=== PATIENT | male | born 1935 | race Caucasian/White ===

== ENCOUNTER 2022-02-16 10:42 | Emergency (ER) | payer MEDICARE, OTHER ==
[~2022-02-16] VITALS: Ht 165.1 cm; Wt 49.4 kg
[2022-02-16] MEDS ORDERED: LISINOPRIL20 MG PO (12:56)
== END 2022-02-16 17:12 | disposition home or self-care (01) ==
LOC: ED 10:42
DX: K22.2 Esophageal obstruction (principal); R63.4 Abnormal weight loss; Z85.828 Personal history of other malignant neoplasm of skin; Z79.899 Other long term (current) drug therapy
CPT/HCPCS: 36415; 71045; 71260; 74177; 80053; 81001; 83735; 85025; 99284-25; J2405; J7030; Q9967

== ENCOUNTER 2022-02-19 10:11 | Inpatient (IN) | payer MEDICARE ==
[~2022-02-19] VITALS: Ht 165.1 cm; Wt 52.9 kg
[~2022-02-19 10:11] MED LIST: LISINOPRIL20 MG PO
--- OUTSIDE RECORDS SUMMARY | 2022-02-19 10:18 | XMS ---
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 - 2 Visits in 30 Days CARE PROVIDERS There are no care providers on record at this time. Galina has no Care Guidelines for this patient. Baljinder VIS[facility] COUNT (12 MO.) [facility] T[facility] NOTE: Visits indicate total known visits. ED/C VISIT TRACKING (12 MO.) [facility] COMPLAINT: - NO APPETITE 02/16/2022 10:43 [facility] OR TYPE: Emergency COMPLAINT: - DIFFICULTY SWALLOWING, DEHYDRATED INPATIENT VISIT TRACKING (12 MO.) No inpatient visits to display in this time frame [id number]
--- NOTE | 2022-02-19 13:30 | NUR ---
PATIENT ARRIVED FROM ER VIA STRETCHER. KADEN CHARGE NURSE HAS GOTTEN PATIENT IN TO BED AND HIS IV IS D5LR RUNNING AT 125MLS/HR. PATIENT'S UPPER LUNGS ARE CLEAR, BUT BILAT BASILAR EXP. WHEEZES ARE NOTED AND PATIENT HAS NO BOWEL TONES. THE ABSENCE OF BOWEL TONES NOTED BY THIS RN AND CONFIRMED BY AUSCULTATION WITH GILBERT ALFONSO. PATIENT DENIES NEED FOR NAUSEA OR PAIN MEDS AND SAYS HE IS COMFORTABLE WITH JUST AND ICE PACK ON HIS ABD. DERMATOLOGY TEACHER EQUAL AND STRONG AND STRENGTH IN LEGS IS EQUAL. PATIENT JUST FEELS WEAK. CALL LIGHT IS IN REACH AND BED ALARM IS ON.
--- NOTE | 2022-02-19 15:13 | NUR ---
MED REC COMPLETE
--- NOTE | 2022-02-19 15:33 | NUR ---
HERE SEEING PATIENT. THIS RN INFORMED PATIENT'S HR IS REALLY IRREGULAR AND THAT HIS SYSTOLIC B/P IS IN THE 170'S TO 180'S AND THAT THIS RN COULD NOT HERE ANY BOWEL TONES. VERBALIZED UNDERSTANDING AND HAD NO NEW ORDERS FOR THIS RN AT THIS TIME. THE PATIENT TRIED TO VOID AND WAS NOT ABLE TO AT THIS TIME. CALL LIGHT IS IN REACH AND PATIENT DENIES ANY CARE NEEDS AT THIS TIME.
--- NOTE | 2022-02-19 18:02 | NUR ---
PATIENT STOOD AT THE BEDSIDE WITH 1PSBA AND VOIDED 100MLS DARK CHUCHO URINE. PATIENT GIVEN A NEW ICEPACK TO SET ON HIS BELLY. PATIENT'S HX COMPLETE. PATIENT CANNOT READ OR WRITE. PATIENT DOES NOT KNOW THE YEAR/MONTH/OR PRESIDENT. PATIENT HAS NO NAUSEA, JUST FEELS HE CAN'T SWOLLOW AND COUGHS UP SOME PHLEM. CALL LIGHT IN REACH AND BED ALARM IS ON. PATIENT'S FAMILY TOOK HIS CANE HOME WITH THEM.
--- NOTE | 2022-02-19 18:22 | NUR ---
IS ON THE UNIT AND INFORMED OF PATIENT'S LOW URINE OUTPUT AND ORDERED 1 LITER LR BOLUS OVER 1 HOUR. READ THIS BACK TO AND HE CONFIRMED THE ORDER.
--- NOTE | 2022-02-19 18:32 | NUR ---
1 LITER LR BOLUS STARTED TO GO OVER 1 HOUR. IN THE ROOM TALKING WITH PATIENT AT THIS TIME. CALL LIGHT IN REACH.
--- NOTE | 2022-02-19 18:44 | NUR ---
PATIENT IN BED RESTING. VITALS DONE AND CHARTED. BLOOD PRESSURE HIGH, RN NOTIFIED. CALL LIGHT IN REACH. BED ALARM ON. NO FURTHER NEEDS AT THIS TIME.
--- NOTE | 2022-02-19 19:35 | NUR ---
REPORT RECEIVED FROM GILBERT PETERSON. pt RESTING IN BED AWAKE, SCDS ON. IVF BOLUS INFUSING WNL. UP TO SIDE OF BED SBA TO VOID IN URINAL, 175 MLS. pt BACK IN BED. BOLUS NOW COMPLETE. BED ALARM ON.
--- NOTE | 2022-02-19 21:35 | NUR ---
pt AWAKE WHEN RN ENTERS ROOM. pt DENIES ANY PAIN AT THIS TIME. CONSENT FOR SURGERY SIGNED AND ON CHART. SBA TO SIDE OF BED FOR VOID IN URINAL AND BACK TO BED. SCDS ON. ASSESSMENT COMPLETE. BOWEL TONES ABSENT, HYPOACTIVE RUQ. pt COUGHING UP THICK CLEAR PHLEGM. DENIES NAUSEA. NPO. IV SITE FLUSHED WNL. NEW BAG IVF INFUSING ORDERED. pt HAS CALL LIGHT IN REACH. EDUCATION PROVIDED RING STRIKER LIGHT. BED ALARM ON.
--- NOTE | 2022-02-19 23:04 | NUR ---
CALL LIGHT ANSWERED. SBA TO STAND AT SIDE OF BED TO VOID IN URINAL, 175 MLS CONCENTRATED VOID. SBA WITH FWW TO RESTROOM FOR BM, FLATUS PRESENT, NO BM. BACK IN BED. SCDS ON. BED ALARM ON. IVF INFUSING WNL. CALL LIGHT IN REACH.
--- NOTE | 2022-02-20 02:32 | NUR ---
pt AWAKE IN BED, DOING SIT UPS. pt C/O STOMACH DISCOMFORT. "FEELS LIKE I MIGHT THROW UP". PRN NAUSEA MEDICATION ADMINISTERED. pt DENIES ACTUAL PAIN. ASSESSMENT COMPLETE. BOWEL TONES NOW HYPOACTIVE. ABD SOFT, FLAT, NOT PAINFUL WITH PALPATION. VSS. pt DENIES TOILETING NEEDS. IVF INFUSING WNL. CALL LIGHT IN REACH. BED ALARM ON. SCDS ON.
--- NOTE | 2022-02-20 04:09 | NUR ---
CALL LIGHT ANSWERED. SBA TO SIDE OF BED FOR 400 ML VOID, CONCENTRATED. pt BACK IN BED WITH SCDS ON. IVF INFUSING WNL. CALL LIGHT IN REACH. BED ALARM ON.
--- NOTE | 2022-02-20 05:28 | NUR ---
LAB TECHS IN ROOM FOR LAB DRAW. pt AWAKE, COUGHING UP THICK CLEAR/WHITE SPUTUM. MOUTH SWAB AND WASH CLOTH PROVIDED. IVF INFUSING WNL. VSS. pt DENIES TOILETING OR ADDITIONAL NEEDS. CALL LIGHT IN REACH. BED ALARM ON.
--- NOTE | 2022-02-20 08:01 | NUR ---
THIS RN RECEIVED SHIFT REPORT FROM GILBERT JUARES. PATIENT HAS C/O NAUSEA AND 8MG SIVP ZOFRAN GIVEN ALONG WITH AM PEPCID IV. PATIENT GIVEN AN ICE PACK TO PUT ON HIS ABD AT HIS REQUEST FOR, "A BELLY ACHE". PATIENT DENIED ANY OTHER CARE NEEDS AT THIS TIME. CALL LIGHT IN REACH AND BED ALARM ON. AM ASSESSMENT COMPLETE.
--- NOTE | 2022-02-20 08:26 | NUR ---
got pt ice pack. call light within reach no further tasks at this time
--- NOTE | 2022-02-20 09:30 | NUR ---
HERE SEEING PATIENT AND WRITING ORDERS. PATIENT'S NA+ REMAINS ELEVATED AND IV CHANGED TO D5W AT 125MLS/HR AND CONSULT PUT IN FOR THE HOSPITALIST. PATIENT DENIES ANY CARE NEEDS AT THIS TIME. CALL LIGHT RYLEE MCCRARY.
--- NOTE | 2022-02-20 09:50 | NUR ---
THIS RN WAS INFORMED BY CHARGE NURSE WANG TO HOLD IV FLUIDS PER UNTIL COULD SEE THE PATIENT. PATIENT'S IV STOPPED AND IV LOCKED WITH SALINE. SEEING PATIENT NOW.
--- NOTE | 2022-02-20 10:30 | NUR ---
CALLED THIS RN TO RESTART D5W AT 85MLS/HR WHICH WAS DONE. PATIENT UP TO THE BATHROOM 1PSBA AND FWW TO THE BATHROOM AND BACK TO BED. BED ALARM BACK ON. NEW NONADHERANT DRESSING WITH MEDIPORE TAPE PLACED OVER PATIENT'S RIGHT MID/UPPER BACK SKIN CA LESION. WASHED OFF WITH WOUND CLEANSER OLD DRESSSING WAS FALLING OFF. PATIENT HAS NO OTHER CARE NEEDS FROM THIS RN AT THIS TIME. CALL LIGHT IN REACH.
--- NOTE | 2022-02-20 11:21 | NUR ---
THIS RN IN AND GAVE SIVP VASOTEC TO PATIENT FOR B/P. PATIENT TOLERATED THIS WELL. PATIENT DENIES ANY CARE NEEDS AT THIS TIME. CALL LIGHT IN REACH AND BED ALARM IS ON.
--- NOTE | 2022-02-20 13:19 | NUR ---
PT IS LAYING IN BED AND BROTHER AT BEDSIDE. I&O AND VS CHARTED CALL LIGHT WITHIN REACH NO FURTHER TASKS AT THIS TIME
--- NOTE | 2022-02-20 13:31 | NUR ---
I was able to meet with Sang, his Aleyda Genao, and friend Jarvis today. Sang states that he plans to return home on discharge from the hospital. Friend Jarvis is with the patient and his Aleyda Genao, and drives them to their appointments and wherever they need to go. Sang states that he has been able to chores including feeding the chickens, etc. Sang and his are requesting a PCP in [place], both feel that they are able to care for themselves in the home. There are no food insecurities expressed. There are no concerns with being able to corn picker prescriptions, buy food, pay for utilities etc. Sang is awake and oriented to person/place, but not time. He is able to describe his radiation treatment in detail. He answers questions appropriately. Sang denies questions or needs at this time. Very happy with care here in the [facility] as reported by Sang and his .
--- NOTE | 2022-02-20 14:32 | NUR ---
THIS RN IN TO CHECK ON PATIENT. PATIENT'S AND FRIEND ARE HERE VISITING AND UPDATED ON PATIENT'S CONDITION. INFORMED PATIENT AND VISITORS PATIENT WOULD NOT BE GOING FOR HIS UPPER GI UNTIL TOMORROW THE HOSPITALIST IS TRYING TO CORRECT THE PATIENT'S ELECTROLYTE IMBALANCE. ALL PRESENT VERBALIZED UNDERSTANDING. AFTERNNON ASSESSMENT COMPLETE. PATIENT DENIED ANY CARE NEEDS AT THIS TIME. CALL LIGHT IS IN REACH.
--- NOTE | 2022-02-20 17:25 | NUR ---
PATIENT GIVEN HIS 1700 IV B/P MEDS. PATIENT DENIES NAUSEA, BUT STILL HAS A,"STOMACH ACHE". PATIENT JUST SEEMS TO BE CONTENT WITH AN ICEPACK THAT HE PUTS ON HIS ABD AND DOESN'T WANT ANYTHING ELSE. PATIENT HAS BEEN VOIDING QUANTITY SUFFICIENT AND REMAINS NPO. IV WNL AND INFUSING. BED ALARM IS ON AND CALL LIGHT RYLEE MCCRARY. PATIENT DENIES ANY OTHER CARE NEEDS AT THIS TIME.
--- NOTE | 2022-02-20 18:25 | NUR ---
PATIENT CALLED AND TAKEN TO THE RESTROOM 1PSBA AND FWW BY STEVEN AYERS. PATIENT RETURNED BACK TO BED IN THE SAME MANNER AND TOLERATED THIS WELL. CALL LIGHT IS IN REACH AND BED ALARM IS ON. PATIENT HAS BEEN CALL APPROPRIATELY.
--- NOTE | 2022-02-20 19:21 | NUR ---
REPORT RECEIVED FROM GILBERT PETERSON. pt RESTING IN BED WITH EYES CLOSED. BREATHING EQUAL AND UNLABORED. NO DISTRESS NOTED. BED ALARM ON. SCDS ON.
--- NOTE | 2022-02-20 19:27 | NUR ---
PATIENT RESTING QUIETLY IN BED, EYES CLOSED, RESPIRATIONS ARE REGULAR AND EVEN, AND CALL LIGHT IN REACH. SHIFT REPORT GIVEN TO GILBERT JUARES.
--- NOTE | 2022-02-20 20:31 | NUR ---
pt AWAKENS TO VOICE. IVF INFUSING WNL ORDERED. IV SITE FLUSHED WNL, GOOD BLOOD RETURN. SCHEDULED MEDICATION ADMINISTERED. IV K RIDER INFUSING WNL. ASSESSMENT COMPLETE. pt DENIES PAIN, EDUCATED ON PAIN SCALE. pt RATES PAIN 3/10 AFTER DISCUSSION IN ABDOMEN. DENIES NEEDS. DECLINES ICE PACK OFFERED. CALL LIGHT IN REACH. BED ALARM ON. pt DENIES TOILETING NEEDS.
--- NOTE | 2022-02-20 21:26 | NUR ---
IN ROOM TO INFUSE SECOND K RIDER. pt STATES "IT WAS KIND OF BURNING". IV SITE FLUSHED AND ASSESSED WNL. RATE SLOWED TO 75 MLS/HR AND WARM BLANKET WRAPPED AROUND ARM. pt EDUCATED TO USE CALL LIGHT IF ARM IS HURTING. STATES "YOU GUYS ARE BUSY, I DONT WANT TO BE A BOTHER". REASSURED pt TO CALL, STAFF IS AVAILABLE. BED ALARM BUCK PRESSER LIGHT IN REACH. SCDS ON.
--- NOTE | 2022-02-20 22:52 | NUR ---
pt SLEEPING, AWAKENS TO VOICE FOR SCHEDULED IV MEDICATION. IV SITE FLUSHED WNL. MEDICATION ADMINISTERED ON IV PUMP. SECOND K RIDER COMPLETE. IV MG NOW INFUSING WNL. pt DENIES TOILETING NEEDS. CALL LIGHT IN REACH. BED ALARM ON.
--- NOTE | 2022-02-21 00:22 | NUR ---
CALL LIGHT ANSWERED. SBA WITH FWW TO RESTROOM FOR 400 ML VOID AND BACK TO BED. GAIT STEADY WITH WALKER. SCDS ON. BED ALARM ON. IVF INFUSING WNL. CALL LIGHT IN REACH.
--- NOTE | 2022-02-21 02:50 | NUR ---
pt COUGHING, CHECKED ON pt. COUGHING UP PHLEGM. SBA TO SIDE OF BED FOR VOID IN URINAL AND BACK TO BED. ASSESSMENT COMPLETE. pt DENIES PAIN. SCDS ON. CALL LIGHT IN REACH.
--- NOTE | 2022-02-21 05:24 | NUR ---
pt AWAKE RESTING IN BED AFTER LAB DRAW. pt DENIES PAIN. VSS. SCHEDULED IV MEDICATION ADMINISTERED. SCDS ON. CALL LIGHT IN REACH.
--- NOTE | 2022-02-21 07:15 | NUR ---
REPORT RECIEVED FROM BLANQUITA HUNT AND ROMANA NGUYEN. PT RESTING IN BED, HELPED TO RESTROOM. NO FURTHER NEEDS IDENTIFIED AT THIS TIME.
--- NOTE | 2022-02-21 07:55 | NUR ---
PT AWAKE IN BED. WHITE BOARD UPDATED. PT CONCERNED BY SCAB ON UPPER LIP AND WANTS SOMETHING TO SOOTHE IT. GILBERT FIERRO NOTIFIED. CALL LIGHT IN REACH. NO FURTHER NEEDS AT THIS TIME.
--- NOTE | 2022-02-21 08:05 | NUR ---
ASSESSMENT COMPLETE. PT RESTING IN BED A+O WATCHING TV. HRR, LSC, IV INFUSING WNL. PT STATE CONTINUOUS DULL PAIN IN UPPER STOMACH. BOWEL TONES ACTIVE, NO NAUSEA AT THIS TIME. PT DENIES N/T, SKIN DRY AND INTACT. PT GETTING READY TO GO FOR EGD, EDUCATED AND NO QUESTIONS AT THIS TIME.
--- NOTE | 2022-02-21 09:53 | NUR ---
02/21/22 0953 Francie Shelby 0937-PATIENT ARRIVED TO PACU ON 5L NC RN DOING JAW THRUST TO MAINTAIN OPEN AIRWAY. PATIENT NONAROUSABLE ABDOMEN SOFT. SR. IVF INFUSING. 0940-PATIENT REMAINS NONAROUSABLE RN DOING JAW THRUST TO MAINTAIN OPEN AIRWAY. 0945-PATIENT AROUSING TO VERBAL STIMULI EYES SLIGHTLY OPENING PATIENT MAINTAINING OWN AIRWAY. NOT FOLLOWING COMMANDS AT THIS TIME. 0952-PATIENT SLEEPING 98% 2L NC. APNEA PATIENT AROUSES EASILY AND TAKES DEEP BREATHES REMAINS VERY DROWSY. DOZES BACK TO SLEEP.
--- NOTE | 2022-02-21 10:35 | NUR ---
PT RETURNED FROM PROCEDURE, PT DROWSY BUT ORIENTED AND AROUSABLE. FAMILY AT BEDSIDE. DR RIDLEY IN ROOM EDUCATING FAMILY AND PT. VSS, NO FURTHER NEEDS OR QUESTIONS AT THIS TIME CALL LIGHT IN REACH.
--- NOTE | 2022-02-21 11:25 | NUR ---
Patient to imaging for procedure
--- NOTE | 2022-02-21 12:19 | NUR ---
Call light answered, IV pump alarming, resolved. Pt resting in bed watching TV. He states he has no needs at this time.
--- NOTE | 2022-02-21 13:33 | NUR ---
ROUNDED ON PT, RESTING IN BED WITH EYES CLOSED. NO NEEDS IDENTIFIED AT THIS TIME. CALL LIGHT IN REACH
--- NOTE | 2022-02-21 14:32 | NUR ---
PT AWAKE IN BED. PT AMBULATED SBA WITH FWW TO BATHROOM. PT BACK TO BED WITH CALL LIGHT IN REACH. NO FURTHER NEEDS AT THIS TIME.
--- NOTE | 2022-02-21 15:00 | NUR ---
ASSESSMENT COMPLETE. PT RESTING IN BED, CONVERSATING WITH STAFF. LUNG SOUNDS CLEAR, IV INFUSING WNL,A+O. PT STATES NO PAIN OR NAUSEA AT THIS TIME. BOWEL TONES ACTIVE, SKIN DRY AND INTACT. NO NEEDS IDENTIFIED AT THIS TIME. CALL LIGHT IN REACH
--- NOTE | 2022-02-21 16:00 | NUR ---
Called [facility] to find a Dr. to establish care for this pt. Notified by medical receptionist biller, pt is established with Chata Olivares SERVICE DESK TEAM LEAD at the [facility] and has been seen 4 times in the last 6 months. Pt has also seen Dr. Brink at the same clinic 3 times in the last 6 months. Will list Elise as pts pcp and let pt know if they want to change Drs, they will need to do so after they return home.
--- NOTE | 2022-02-21 16:33 | NUR ---
Spoke with pt and he had forgotten he see Caesar Olivares in [place] as his pcp. Does not remember seeing Dr. Brown, eventhough he has seen them several times. He is fine with cont. with Ghulam Olivares as his PCP.
--- NOTE | 2022-02-21 16:53 | NUR ---
Chart faxed to [facility] and [facility].
--- NOTE | 2022-02-21 17:33 | NUR ---
CALL LIGHT ANSWERED. PT IN BATHROOM. TEETH BRUSHED AND MOUTHWASHED. PT GAIT UNSTEADY WITH FWW. NO FURTHER NEEDS AT THIS TIME. CALL LIGHT IN REACH.
--- NOTE | 2022-02-21 17:45 | NUR ---
Scheduled medications given and oral swabs provided. Pt resting in bed and states his throat is dry. IVF with potassium infusing WNL. Pt has no other needs at this time. Call light in reach.
--- NOTE | 2022-02-21 19:57 | NUR ---
RECEIVED REPORT FROM DAYSHIFT RN. PATIENT IN BED WATCHING TV. NO FURTHER NEEDS NOTED. CALL LIGHT WITHIN REACH.
--- NOTE | 2022-02-21 20:10 | NUR ---
IV PUMP ALARMING DISTAL OCCLUSION. IV SITE ASSESSED, IV K RIDER INFUSING WNL. TEMPERATURE IN ROOM ADJUSTED PER REQUEST. BLANKET REMOVED. CALL LIGHT IN REACH.
--- NOTE | 2022-02-21 21:10 | NUR ---
ASSESSMENT COMPLETED. VITALS TAKEN & RECORDED. I/O'S RECORDED. SCHEDULED MEDICATIONS GIVEN ORDERED. IV MEDS INFUSING ORDERED. PATIENT DENIES PAIN. NO FURTHER NEEDS NOTED. CALL LIGHT IN REACH. BED ALARM IN PLACE. PATIENT ALERT AND ORIENTED. ORAL CARE PROVIDED. WOUND DRESSING CLEAN DRY & INTACT.
--- NOTE | 2022-02-21 23:42 | NUR ---
PATIENT IN BED RESTING. BP TAKEN & RECORDED. SCHEDULED MEDS GIVEN ORDERED. IV INFUSING PER ORDER. NO NEEDS NOTED. CALL LIGHT IN REACH.
--- NOTE | 2022-02-22 02:17 | NUR ---
PATIENT ASSESSMENT COMPLETED. VITALS TAKEN & RECORDED. I/O'S RECORDED. PATIENT DENIES PAIN. ORAL CARE COMPLETED. SCDS IN PLACE. NO FURTHER NEEDS NOTED. CALL LIGHT IN REACH. BED ALARM IN PLACE.
--- NOTE | 2022-02-22 03:14 | NUR ---
ANSWERED PT CALL LIGHT, ASSITED PT TO BR, 1PA FWW. PT BACK IN BED, BED ALARM ON, CALL LIGHT WITHIN REACH, NO FURTHER ASSISTANCE NEEDED AT THIS TIME.
--- NOTE | 2022-02-22 05:30 | NUR ---
PATIENT IN BED WATCHING TV. VITALS TAKEN & RECORDED. I/O'S RECORDED. SCHEDULED MEDS GIVEN PER ORDER. NO FURTHER NEEDS NOTED. CALL LIGHT IN REACH. BED ALARM IN PLACE.
--- NOTE | 2022-02-22 06:50 | NUR ---
ASSISTED PATIENT TO THE RESTROOM BY SBA W/FWW. PATIENT BACK IN BED. PATIENT REQUESTS TO LEAVE SCDS OFF FOR A WHILE. EDUCATED PATIENT. PROVIDED ORAL CARE FOR PATIENT. NO FUTHER NEEDS NOTED. CALL LIGHT IN REACH. BED ALARM IN PLACE.
--- NOTE | 2022-02-22 07:30 | NUR ---
REPORT RECIEVED FROM NIGHT GILBERT THOMAS. PT AWAKE IN BED, AAO. DENIES NEEDS AT THIS TIME. CALL LIGHT IN REACH.
--- NOTE | 2022-02-22 08:52 | NUR ---
ASSISTED PT SBA WITH FWW TO BATHROOM FOR VOID THEN UP TO CHAIR. PERSONAL ITEMS AND CALL LIGHT WITHIN REACH. LIGHTS AND TV ON, SHADES OPEN.
--- NOTE | 2022-02-22 09:40 | NUR ---
RN IN ROOM TO ADMINISTER SCHEDULED MEDCATION AND ASSESS PT - PT SITTING UP IN CHAIR VISITING WITH STUDENT NURSE UPON ENTRY. PT PROVIDED THICKENED JUICE PER VERBAL ORDER FROM DR. RIDLEY THIS MORNING TO ASSESS ONGOING ESO STRICTURE. PT UNABLE TO TOLERATE SMALL SIP, FLUID CAME BACK UP AFTER APPROX 10-20 SEC AFTER SWALLOW INITIATING PT TO COUGH/GAG. WHITE SORES IN MOUTH NOTED - TOP OF MOUTH, TOUNGE AND THROAT. RN TO READ NOTES AND ADDRESS PROBLEM IF NEW. PT DENIES PAIN, SOB. HR REGULAR. IV SITE TOLERATING FLUIDS WITHOUT DIFFICULTY. CALL LIGHT IN REACH.
--- NOTE | 2022-02-22 11:53 | NUR ---
RN IN ROOM TO ADMINISTER SCHEDULED MEDICATIONS. PT REQUESTS HELP TO BATHROOM TO VOID - STANDBY ASSIST WITH FWW. VOIDED 300 OF CONCENTRATED URINE. FAMILY AT BEDSIDE. DENIES FUTHER NEEDS, CALL LIGHT IN REACH.
--- NOTE | 2022-02-22 12:30 | PATH ---
[facility] [address], [place] [address] Signed SPECIMEN(S): A DUODENAL BIOPSY SPECIMEN(S): B DISTAL ESOPHAGEAL BIOPSY SPECIMEN(S): C ESOPHAGEAL BIOPSY STRICTURE SPECIMEN SOURCE: A. DUODENAL BIOPSY B. DISTAL ESOPHAGEAL BIOPSY C. ESOPHAGEAL BIOPSY STRICTURE CLINICAL HISTORY: Dehydration and dysphagia/Zenker's diverticulum. FINAL PATHOLOGIC DIAGNOSIS: A. Duodenum, biopsy: - Duodenal mucosa with changes of peptic duodenitis. - Negative for increased intraepithelial lymphocytes or villous blunting. - Negative for dysplasia or malignancy. B. Esophagus, distal, biopsy: - Reflux esophagitis. - Negative for intestinal metaplasia, dysplasia, or malignancy. C. Esophagus, stricture, biopsy: - Squamous mucosa with mild reactive changes. - Negative for intestinal metaplasia, dysplasia, or malignancy. NAL:cml:C2NR MICROSCOPIC EXAMINATION: Histologic sections of all submitted blocks are examined by light microscopy. These findings, together with the gross examination, support the pathologic diagnosis. GROSS DESCRIPTION: Three specimens are received in three containers, labeled "CH." A. The specimen, labeled "CH, duodenal biopsy," is received in formalin and consists of one huffman soft tissue fragment that measures 0.2 cm in greatest dimension. The specimen is entirely submitted in cassette (A1). B. The specimen, labeled "CH, distal esophagus biopsy," is received in formalin and consists of one huffman soft tissue fragment that measures 0.2 cm in greatest dimension. The specimen is entirely submitted in cassette (B1). C. The specimen, labeled "CH, esophagus stricture biopsy at 18 cm," is PATIENT NAME: PRANAV BARR PATHOLOGY DATE OF : 39 REPORT #: [id number] PHYSICIAN: HOMA MARIN PCP: MIKE BRANTLEY MD REPORT IS CONFIDENTIAL AND NOT TO BE RELEASED WITHOUT AUTHORIZATION [facility] [address] [place] [address] Signed received in formalin and consists of two huffman soft tissue fragments that measure 0.1-0.2 cm in greatest dimension. The specimen is entirely submitted in cassette (C1). JS (under the direct supervision of a pathologist) The Gross Description was prepared using a voice recognition system. The report was reviewed for accuracy; however, sound-alike word errors, addition and/or deletions may occur. If there is any question about this report, please contact Client Services. PERFORMING LABORATORY: The technical component was performed by [employer] [address] (CLIA# [id number]). [facility], [address] [place] [address] (CLIA# [id number]). Diagnostician: Kylee Lui MD Pathologist Electronically Signed 02/22/2022 Copies: ~ PATIENT NAME: PRANAV BARR PATHOLOGY DATE OF : 39 REPORT #: [id number] PHYSICIAN: HOMA MARIN PCP: MIKE BRANTLEY MD REPORT IS CONFIDENTIAL AND NOT TO BE RELEASED WITHOUT AUTHORIZATION
--- NOTE | 2022-02-22 14:15 | NUR ---
RN IN ROOM TO COMPLETE VS, I/O AND ASSESSMENT. PT SITTING UP IN CHAIR VISITING WITH FAMILY. PT HR IRREGULAR, RATE 56 MANUALLY COUNTED. HELMET HAT PUNCHER EDUCATED ON RANGE WHEN TO NOTIFY RN AND TO COUNT PULSE MANUALLY WITH IRREGULAR RYTHEMS. PT STATES HE PASSED GAS, BOWEL TONES HYPOACTIVE. REMAINS NPO AT THIS TIME. IV SITE TOLERATING FLUIDS WITHOUT DIFFICULTY. PT DENIES OTHER NEEDS AT THIS TIME. CALL LIGHT IN REACH.
--- NOTE | 2022-02-22 14:29 | NUR ---
RT IN ROOM TO PERFORM ORDERED EKG.
--- NOTE | 2022-02-22 15:42 | NUR ---
No change in dc plans.
--- NOTE | 2022-02-22 17:14 | NUR ---
RN IN ROOM TO ADMINISTER SCHEDULED MEDS. VS STABLE - PULSE MANUALLY CALCULATED AT 61. PT BACK TO BED FROM CHAIR, AMBULATES USING FWW AND STANDBY. PT RE-ORIENTED TO SITUATION - PT STATED HE WAS TOLD HE HAD A NC WHEN HE ARRIVED FOR THIS ADMISSION, PT STATES HE "JUST DOESNT CARE ANYMORE". CALL LIGHT IN REACH.
--- NOTE | 2022-02-22 19:30 | NUR ---
REPORT RECEIVED FROM MARIE HUNT. PT IS AWAKE AND ALERT IN BED. HE IS NPO FOR DYSPHAGIA. PTS IV IS INFUSING AND APPEARS TO BE WNL. HE IS PLEASANT AND COOPERATIVE . PT KNOWS TO CALL FOR ASSIST. HAS CALL LIGHT IN REACH. BED ALARM IS ON.
--- NOTE | 2022-02-22 23:14 | NUR ---
PT UP TO THE BATHROOM WITH FWW AND SBA. VOIDED 400. ASSSITED BACK TO BED. CALL LIGHT IN REACH. BED ALARM ON.
--- NOTE | 2022-02-23 02:15 | NUR ---
PT SBA FWW TO THE TOILET, VOID, BACK TO BED, ALARM SET, NO FURTHER NEEDS AT THIS TIME
--- NOTE | 2022-02-23 04:15 | NUR ---
PT NPO. SLEEPING OFF AND ON TONIGHT. CALL LIGHT IN REACH. BED ALARM ON.
--- NOTE | 2022-02-23 05:50 | NUR ---
PT ASSISTED UP TO THE BATHROOM. VOIDED. ASSISTED BACK TO BED. DRESSING ON BACK REPLACED IT WAS PEALING OFF. CALL LIGHT IN REACH.
--- NOTE | 2022-02-23 07:31 | NUR ---
REPORT RECEIVED FROM NIGHT RN TASH - PT RESTING IN BED ON SIDE WITH EYES CLOSED. RR EVEN AND UNLABORED. CALL LIGHT IN REACH.
--- NOTE | 2022-02-23 08:48 | NUR ---
RN IN ROOM TO ADMINISTER SCHEDULED MEDICATIONS. PT RESTING IN CHAIR WATCHING TV UPON ENTRY. IV SITE TOLERATING IV FLUIDS WITHOUT DIFFICULTY. PT DENIES FURTHER NEEDS AT THIS TIME. VS COMPLETE - STABLE. CALL LIGHT IN REACH.
--- NOTE | 2022-02-23 08:55 | NUR ---
pt is sitting up in chair. i&o charted RN charted vs. call light within reach no further tasks at this time
--- NOTE | 2022-02-23 11:10 | NUR ---
Spoke with pt, , and pts friend. Pt states he plans on having surgery. States he has lost 65 pounds and is unable to eat. Pt and plan on pt going home when medically cleared after surgery. denies needs for pt to go home. Friend will drive them.
--- NOTE | 2022-02-23 12:19 | NUR ---
RN IN ROOM TO ADMINISTER SCHEDULED MEDICATIONS - RESTING IN BED VISITING WITH FAMILY UPON ENTERING. ASSESSMENT COMPLETE. UNCHANGED FROM PREVIOUS. PT DENIES FURTHER NEEDS AT THIS TIME. PREOP DUTIES HAVE BEEN COMPLETED. CALL LIGHT IN REACH.
--- NOTE | 2022-02-23 13:19 | NUR ---
Pt left floor to OR with OR staff.
--- NOTE | 2022-02-23 13:43 | EKG ---
[facility] [address] [place], [place] [address] Signed Sinus rhythm Frequent PVCs Left bundle branch block Abnormal ECG No previous ECGs available Confirmed by UMESH EASON MD ([id number]) on 02/23/2022 1:43:08 PM Electronically Signed By: UMESH EASON MD 02/23/22 1343 PATIENT NAME: PRANAV BARR Electrocardiogram DATE OF : 39 PHYSICIAN: UMESH EASON MD REPORT #: [id number] REPORT IS CONFIDENTIAL AND NOT TO BE RELEASED WITHOUT AUTHORIZATION
--- NOTE | 2022-02-23 13:44 | EKG ---
[facility] [address] [facility] [place] [address] Signed Sinus rhythm with premature atrial complexes Left bundle branch block Abnormal ECG When compared with ECG of 21-FEB-2022 10:19, (Unconfirmed) Previous ECG has undetermined rhythm, needs review Confirmed by UMESH EASON MD ([id number]) on 02/23/2022 1:44:04 PM Electronically Signed By: UMESH EASON MD 02/23/22 1344 PATIENT NAME: PRANAV BARR Electrocardiogram DATE OF : 39 PHYSICIAN: UMESH EASON MD REPORT #: [id number] REPORT IS CONFIDENTIAL AND NOT TO BE RELEASED WITHOUT AUTHORIZATION
--- NOTE | 2022-02-23 18:25 | NUR ---
pt arrived intubated on ventilator with MAGED FOX AND KERRI NURSE. PT HOOKED UP TO VENTILATROR AT THIS TIME BY RT. 7 INCH TUBE, 21 AT THE LIP. VT= 450, RR = 18, PEEP =5, FIO2 = 40%. PERSONAL LINES ACCOUNT MANAGER HAS PROPOFOL DRIP INFUSING AT 100 MCG/KG/MIN. PT RASS SCORE UPONE ARRIVAL -3. HEART RATE3 IN THE 50S AT REST, SPO2 = 100 PERCENT ON CURRENT VENT SETTINGS. BLOOD PRESURE 140/94.
--- NOTE | 2022-02-23 18:40 | NUR ---
VERBAL ORDER BY DR RIDLEY FOR PROPOFOL DRIP. DRIP NOW INFUSING AT 90 MCG/KG/MIN. VS REMAIN WNL AT THIS TIME. THIS RN REMAINS AT BEDSIDE.
--- NOTE | 2022-02-23 20:00 | NUR ---
RECIEVED REPORT FROM DAY SHIFT, FOCUSED ASSESSMENT COMPLETED, EMAR, ORDERS, AND LABS REVIEWED, SPOKE WITH DR EASON REGARDING ELEVATED BLOOD PRESSURE AND ASKED IF HE WOULD LIKE AN OG PLACED FOR ASPIRATIONS PRECAUTIONS, DR EASON STATED NOT AT THIS TIME, FULL HEAD TO TOE ASSESSMENT COMPLETED, KRUEGER CHANGED TO A UROMETER TO BETTER EVALUATE HOURLY URINE OUTPUT, CXR AND ABG ORDERED. HOB ELEVATED TO 30 DEGREES, SUCTION PROVIDED, MATTIE NOTED TO BE DRAINING BLOODY FLUID, URINE IS LIGHT YELLOW, PEG TUBE IS CLAMPED, PROPOFOL INFUSING, WILL ATTEMPT TO TITRATE DOWN
--- NOTE | 2022-02-23 21:03 | NUR ---
ORAL CARE PROVIDED WITH CHG MOUTH WASH, PT'S MOUTH AND ETT SUCTIONED, THIN CLEAR SECREATIONS, SMALL AMOUNT. PT REPOSITIONED AFTER CXR TAKEN, KRUEGER DRAINING, MATTIE DRAINING, RESTRAINTS IN PLACE, MEDS GIVEN PER MAR, PROPOFOL TITRATED PER ORDERS, PTS RASS -4, HOB ELEVATED TO 30 DEGREES, VITALS WNL
--- NOTE | 2022-02-24 00:39 | NUR ---
PT REMAINS SEDATED AND INTUBATED, PROPOFOL GTT REMAINS INFUSING, REFER TO EMAR AND TITRATION FLOW SHEET FOR SPECIFIC TITRATIONS, RASS OF -3, KRUEGER DRAINING YELLOW URINE, MATTIE DRAIN DRAINING BLOODY FLUID, DRESSING REMAINS INTACT, FEEDING TUBE FLUSHED WITH 100 ML OF WATER, PT REPOSITIONED, RESTRAINTS REMAIN IN PLACE, SCDS ON, HOB AT 30 DEGREES
--- NOTE | 2022-02-24 01:15 | NUR ---
ORAL CARE AND SUCTION PROVIDED, ETT MOVED TO RIGHT SIDE OF MOUTH, PT EASILY AROUSABLE HOWEVER NOT FOLLOWING DIRECTION, CONTINUING TO TITRATE PROPOFOL PER ORDER, REFER TO MAR AND TITRATION FLOWSHEET FOR FURTHER DETAIL, RESTRAINTS IN PLACE, MATTIE UNCHANGED, URINE OUTPUT SLOWING DOWN AND BECOMING MORE CONCENTRATED, WILL CONTINUE TO MONITOR
--- NOTE | 2022-02-24 02:50 | NUR ---
PT'S BLOOD PRESSURE TRENDING DOWNWARD DESPITE PROPOFOL BEING SIGNIFICANTLY TITRATED DOWN, SEE MAR AND TITRATION FLOWSHEET, DR EASON NOTIFIED, 1 L LR BOLUS ORDERED TO BE GIVEN OVER [address] EASON IF PT IS NOT RESPONSIVE TO BOLUS
--- NOTE | 2022-02-24 04:15 | NUR ---
RT AND RN IN WITH PT, PT RASS -1, FOLLOWING COMMANDS, PROPOFOL TITRATED DOWN, SEE MAR AND TITRATION FLOWSHEET, BEGINNING SAT/SBT, RT REMAINS IN ROOM WITH PT
--- NOTE | 2022-02-24 05:52 | NUR ---
SAT/SBT COMPLETED, VENT SETTINGS BACK TO ORIGINAL SETTINGS, PROPOFOL INCREASED, RASS -2
--- NOTE | 2022-02-24 06:43 | NUR ---
PT RESTING, RASS -2, SEDATION AND MAINTAINCE FLUID INFUSING, MATTIE AND EVANS BOTH DRAINING, I&OS COMPLETED, LABS AND EMAR REVIEWED, BLOOD PRESSURE BEGINNING TO TREND DOWNWARD AGAIN, WILL REPORT TO DAY SHIFT, PT CURRENTLY MAINTAINING MAPS OVER 65, HOB ELEVATED TO 30 DEGREES, RESTRAINTS IN PLACE, SIDE RAILS RAISED, BED IN LOWEST POSITION, AWAITING DAY SHIFT TO GIVE REPORT
--- NOTE | 2022-02-24 07:30 | NUR ---
REPORT RECIEVED, CARE OF PT ASSUMED AT THIS TIME. PT RESTLESS ON VENT. EYES OPENING IN REPSONSE TO VOICE, FOLLOWING COMMANDS. DISCUSSED PLAN OF CARE WITH PATIETN. IV FLUIDS INFUSING.
--- NOTE | 2022-02-24 07:59 | NUR ---
INCREASED PROPOFOL DRIP TO 10 MCG/KG/MIN FOR PT COMFORT WHILE ON VENTILATOR. IV FLUIDS INFUSING.
--- NOTE | 2022-02-24 08:55 | NUR ---
DR EASON IN ROOM AT THIS TIME AND UPDATED ON ASSESSMENT FINDINGS. PT AT A RASS OF 1. PROPOFOL ON STANDBY AT THIS TIME. RT IN ROOM AND PLACED PT ON CPAP MODE AT THIS TIME. PT UNDERSTANDS PLAN OF CARE
--- NOTE | 2022-02-24 09:11 | NUR ---
PT SPO2 = 97 PERCENT ON CPAP. BREATHING EVEN AND UNLABORED. RR = 18. FOLLOWING COMMANDS. WRIST RETAINTS OFF. MAGNESIUM NOW INFUSING.
--- NOTE | 2022-02-24 10:00 | NUR ---
pt extubated well. now on 4 L om. continues to have copious oral secretions. oral care and oral suctioning provided. Discussed low urine output with Dr. Teran, orders recieved (see emar). 500 ml bolus now infusing. Familly at bedside at this time. discussed plan to start tube feeds. Call light within reach. Will continue to monitor.
--- NOTE | 2022-02-24 13:45 | NUR ---
PATIENT AWAKE CONVERSING WITH FAMILY, AT BEDSIDE. VSS WNL. PATIENT BREATHING EVEN AND REGULAR. NO NEEDS AT THIS TIME.
--- NOTE | 2022-02-24 14:00 | NUR ---
THIS RN IN ROOM TO CHECK ON PATIENT. ANTIBIOTICS INFUSING. FAMILY AT BEDSIDE PT SPO2 = 93% ON 3 L NC. PT USING YAUNKER HOOKED TO WALL SUCTION FOR ORAL SECRETIONS. PT REPOSITONED IN BED, CALL LIGHT WITHIN REACH. WILL CONTINUE TO MONITOR.
--- NOTE | 2022-02-24 14:12 | NUR ---
INTO ROOM, WHO VERBALIZED OKAY FOR PATIENT TO GET UP TO RECLINER IF PATIENT FEELS UP TO ACTIVITY. ADMINISTERED IV ANTIBIOTIC AND NEW BAG OF IV FLUIDS PER MAR. PATIENT APPEARS AWAKE, USING YANKER WITH SECRETIONS. AT BEDSIDE, PATIENT TOLERATING ACTIVITY WITH FAMILY WELL.
--- NOTE | 2022-02-24 14:28 | NUR ---
PT resting in bed. breathing even and unlabored. RR =20, SPO2= 97% on NC. Family no longer at bedside. Plan of care for afternoon established. Pt understands plan of care to get up to chair. Call light within reach. Will continue to monitor.
--- NOTE | 2022-02-24 16:30 | NUR ---
BED BATH AND ASSESSMENT COMPLETED. PT NOW UP IN CHAIR RECIEVING TUBE FEEDINGS. LUNGS SOUND COARSE THROUGHOUT. PT REMAINS ON 2 L NC. USING YAUNKEER SUCTION TO CLEAR ORAL SECRETIONS. HEART RATE IN THE 80S AT REST. URINE OUTPUT HAS IMPROVED. WILL CLOSELY MONITOR PT WHILE FIRST TUBE FEED IS INFUSING. CALL LIGHT WITHIN REACH.
--- NOTE | 2022-02-24 17:30 | NUR ---
TUBE FEEDING COMPLETED AND WELL TOLERATED BY PT. NO ABDOMINAL PAIN OR DISCOMFORT. NO INCREASED SECRETIONS. PT REMAINS SITIING UP IN CHAIR. CALL LIGHT WITHIN REACH. WILL CONTINUE TO MONITOR.
--- NOTE | 2022-02-24 20:00 | NUR ---
ARRIVED TO SHIFT, RECIEVED REPORT FROM DAY SHIFT, FOCUSED ASSESSMENT COMPLETED, ASSISTED PT FROM CHAIR BACK TO BED VIA 1 PERSON ASSIST, PT UNSTEADY HOWEVER ABLE TO PIVOT TO BED, PT PLACED IN POSITION OF COMFORT, CALL LIGHT WITHIN REACH, SUCTION NEXT TO PT, RE-EDUCATED PT ON HOW TO USE AND SAFETY WHILE USING, EMAR AND LABS REVIEWED, FULL HEAD TO TOE ASSESSMENT COMPLETED, BOLUS FEED OF JEVITY 1.5 GIVEN OVER 1 HOUR.
--- NOTE | 2022-02-24 22:03 | NUR ---
MEDS GIVEN PER MAR, PT REPOSITIONED AND IN POSITION OF COMFORT, C/O OF PAIN, PRN PAIN MEDS GIVEN PER MAR, FEEDING TUBE FLUSHED, D5LR GTT INFUSING, SIDE RAILS RAISED, CALL LIGHT WITHIN REACH
--- NOTE | 2022-02-25 02:00 | NUR ---
PT RESTING IN BED, SIDE RAILS UP FOR SAFETY, CALL LIGHT WITHIN REACH, WILL CONTINUE TO ALLOW PT TO SLEEP, HOURLY ROUNDING BEING DONE, VITALS WNL
--- NOTE | 2022-02-25 06:12 | NUR ---
PT RESTING, REPOSITIONED, IN POSITION OF COMFORT, PT HAD A RESTFUL NIGHT, KRUEGER PATENT, MAINTAINCE FLUID INFUSING, MEDS GIVEN PER MAR, I&OS COMPLETED, NO LABS TO REVIEW. CALL LIGHT WITHIN REACH, SIDE RAILS RAISED, BED IN LOWEST POSITION, AWAITING DAY SHIFT TO GIVE REPORT
--- NOTE | 2022-02-25 08:00 | NUR ---
DR WAYNE IN ROOM AT THIS TIME. VERBAL ORDER GIVEN FOR IV MAGNESIUM GIVEN (SEE EMAR).
--- NOTE | 2022-02-25 08:32 | NUR ---
REPORT RECIEVED, CARE OF PT ASSUMED AT THIS TIME. PT RESTING IN BED ALSEEP. CURRENTLY ON ROOM AIR WITH SPO2 = 92%. CALL ITH WITHIN REACH. WILL CONTINUE TO MONITOR.
--- NOTE | 2022-02-25 09:31 | NUR ---
KRUEGER CARE AND BED BATH COMPLETED. PT SITTING UP IN CHAIR. IV MAGNESIUM INFUSING. CALL LIGHT WITHIN REACH. WILL CONTINUE TO MONITOR.
--- NOTE | 2022-02-25 12:07 | NUR ---
ASSESSMENT COMPLETED. G TUBE FLUSHED WITH 100 MLS AND TUBE FEEDING INITATED. LUNGS SOUND LESS COARSE THAN AM ASSESSMENT BUT REMAIN DIMINISHED IN BILATERAL LUNG BASES. IV FLUIDS CONTINUE TO INFUSE. URINE OUTPUT ADEQUATE. PT REPOSITIONED IN CHAIR. FAMILY REMAINS AT BEDSIDE.
--- NOTE | 2022-02-25 13:30 | NUR ---
PT RESTING IN CHAIR, AT BEDSIDE. TUBE FEEDING WELL TOLERATED. DENIES PAIN OR DISCOMFORT. CALL LIGHT WITHIN REACH. WILL CONTINUE TO MONITOR.
--- NOTE | 2022-02-25 15:00 | NUR ---
HOME FOR EVENING. PT UP IN CHAIR WATCHING TELEVISION. CALL LIGHT WITHIN REACH. WILL CONTINUE TO MONITOR.
--- NOTE | 2022-02-25 16:18 | NUR ---
ASSESSMENT COMPLETED AT THIS TIME. SECOND TUBE FEEDING NOW INFUSING. PT HAS ACTIVE BOWEL TONES IN ALL FOUR QUADRANTS. LUNGS SOUND DIM IN BOTH BASES. PT REMAINS UP IN BED. IV FLUIDS INFUSING. REFUSES PAIN MEDICATION. ASSISTED WITH REPOSITIONING. CALL LIGHT WITHIN REACH. WILL CONTINUE TO MONITOR.
--- NOTE | 2022-02-25 17:03 | NUR ---
PT GIVEN PRN TYLENOL THROUGH G TUBE FOR GENERALIZED DISCOMFORT. SECOND FEEDING COMPLETED. PLAN TO ASSIST PT TO BED IN 20 MINUTES. CALL LIGHT WITHIN REACH. WILL CONTINUE TO MONITOR.
--- NOTE | 2022-02-25 18:03 | NUR ---
PT REPORTS FEELING BETTER AFTER TYLENOL ADMINISTRATION. ASSISTED PT BACK INTO BED. CALL LIGHT WITHIN REACH. SCDS IN PLACE, IV FLUIDS INFUSING. WILL CONTINUE TO MONITOR.
--- NOTE | 2022-02-25 19:24 | OR ---
[facility] [address], [place] [address] Signed DATE OF OPERATION: 02/23/2022 SURGEON: Dominique Ridley MD PREOPERATIVE DIAGNOSES: 1. Severe proximal dysphagia with malnutrition and weight loss (40 pounds). 2. Zenker diverticulum with proximal esophageal stenosis. 3. Kyphotic and distorted cervical spine. POSTOPERATIVE DIAGNOSES: 1. Severe proximal dysphagia with malnutrition and weight loss (40 pounds). 2. Zenker diverticulum with proximal esophageal stenosis. 3. Kyphotic and distorted cervical spine. PROCEDURES: 1. Exploration of neck and Zenker diverticulectomy (prolonged complicated difficult. 2. Cricopharyngeal myotomy. 3. Intraoperative upper endoscopy with placement of 38-Mauritanian over the wire dilator. 4. Open gastrostomy (Alondra gastrostomy). ANESTHESIA: General endotracheal, Dominique Gandhi CRNA INDICATIONS: This 87-year-old white man is from [place], [place]. He presented to the hospital twice the last on February 19, 2022 with severe dysphagia and inability to tolerate any oral intake whatsoever. He had significant dehydration and electrolyte disturbances including hypernatremia. A CT scan had been performed on his initial presentation, which showed no sign of neoplasm of the esophagus. On re-review several days later, he was found to have evidence of his Zenker diverticulum, however. The patient had initially refused admission to the hospital in his initial presentation and upon his return readily accepted hospitalization for his dehydration and so on. His evaluation included upper endoscopy by me, which showed Zenker diverticulum as well as a very narrow aperture of the [place] esophagus. He underwent concurrent balloon dilation of that site to 60-Mauritanian (20 mm) at 6 ATMs. 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 A trial of swallowing was completely unsuccessful. Electronically Signed By: DOMINIQUE RIDLEY MD 02/25/22 1924 PATIENT NAME: PRANAV BARR OPERATIVE REPORT DATE OF : 39 REPORT #: [id number] PHYSICIAN: DOMINIQUE RIDLEY MD PCP: MIKE BRANTLEY MD REPORT IS CONFIDENTIAL AND NOT TO BE RELEASED WITHOUT AUTHORIZATION [facility] [address] [place], [place] [address] Signed Mindful of this factor as well as his significant neck distortion given his kyphotic cervical spine, he is offered cricopharyngeal myotomy with Zenker diverticulectomy and other indicated procedures. The patient's and family friend understand the risks of the procedure including, but not limited to, bleeding, infection, leakage at the resection site and importantly failure to cure the problem. Understand this, they wished to proceed. FINDINGS: Indeed Zenker diverticulum was identified. I suspect it was about 3 cm in length. It was relatively broad-based actually. The cricopharyngeus muscle was prominent, but not excessively so. Myotomy was accomplished in addition to excision of the Zenker diverticulum. The operation was difficult and challenging on the basis of his distorted neck as he did not have good neck extension or rotation particularly. Nevertheless, it was accomplished safely. Intraoperative endoscopy was undertaken, which allowed for intubation of the [place] esophagus and passage of an esophageal dilator to guide diverticulum resection, but passage of the small scope was difficult into the [place] esophagus. It is unclear just what benefit he will enjoy from the operation though it was performed with the intention of improving his [place] swallowing. Additionally, a gastrostomy tube was placed to assist in his nutritional recovery considering the uncertainty of his swallowing ability in the near-term. DESCRIPTION OF PROCEDURE: The patient was brought to the operating room, given a general endotracheal anesthetic. He has a kyphotic cervical spine and although intubation was not particularly difficult according to the ehr trainer, it was done with adjunct of aids including wedge pillow and so forth. Once intubated, a Santillan catheter was placed. Preoperative antibiotic Ancef was given. Decadron was given, mindful of probability of hypopharyngeal swelling to the course of operation. His lounge position was maintained. The neck could not really be placed into extension due to the cervical spine deformity. The neck and upper chest were prepared with a chlorhexidine solution and draped sterilely. An incision was made in a hockey-stick configuration; this was a combination of a transverse low thyroid type incision as well as an anterior sternocleidomastoid incision on the left side. Dissection was carried through the dermis sharply and platysmal layer incised. Given the distorted neck typical landmarks were somewhat displaced, however, the best approach in this situation was to approach the posterior aspect of the left lobe of the thyroid as if doing a thyroidectomy and therefore midline strap muscle was incised in the avascular plane in the medial aspect and retracted laterally. Dissection was carried lateral to the thyroid with sharp and electrocautery dissection with all due care. Middle thyroidal veins were ligated with 4-0 silk ties. Further dissection was undertaken to the retropharyngeal space lateral to the left thyroid lobe. Parathyroid gland was easily identified and unharmed. It was not initially obvious where the Electronically Signed By: DOMINIQUE RIDLEY MD 02/25/22 1924 PATIENT NAME: PRANAV BARR OPERATIVE REPORT DATE OF : 39 REPORT #: [id number] PHYSICIAN: DOMINIQUE RIDLEY MD PCP: MIKE BRANTLEY MD REPORT IS CONFIDENTIAL AND NOT TO BE RELEASED WITHOUT AUTHORIZATION [facility] [address] [place], [place] [address] Signed diverticulum was. The cricopharyngeus was identified and using blunt and sharp dissection ultimately, the diverticulum could be identified cephalad to the cricopharyngeus as would be expected. Using further dissection, the diverticulum could be more fully identified. It measured approximately 3 cm in length and was very thickened. The cricopharyngeus muscle was well identified at that point, and using a small right angle clamp a plane developed superficial to the mucosa and deep to the muscle layer and encircled with a yellow vessel loop. Attempts at passage of a bougie were quite unsuccessful by the ehr trainer (not surprisingly) and even a nasogastric tube was completely ineffective in its passage. Mindful of the narrow aperture of the [place] esophagus previously noted on upper endoscopy and wanting to avoid any excessive excision of the wide-mouth diverticulum endoscopic placement of a dilator was deemed appropriate. I scrubbed out of the case to then perform flexible upper endoscopy. Passage of the endoscope dominantly into the diverticulum was noted by the patent legal assistant and multiple attempts were unsuccessful and even identifying the [place] esophageal lumen. A smaller sized upper endoscope was then obtained and with various manipulations, the [place] orifice of the pharyngoesophageal opening could be identified passing the endoscope down the [place] esophagus and into the stomach. It is recalled that this had been challenging previously to this two days ago. A flexible dilation wire was passed down the endoscope and the endoscope removed stabilizing the wire. A 38-Mauritanian lubricated Cymraes over the wire. Dilator was passed over the wire and the patent legal assistant could easily feel that it was well positioned within the esophageal lumen. I Re scrubbed and examined the area and the bougie was indeed well positioned within the [place] esophagus. This allowed for good distinguishing of the diverticulum which was wide-mouth from the [place] esophagus. With meticulous care, hemostat was placed more posteriorly through the cricopharyngeus directly over the esophageal mucosa and the muscular layer divided with all due care using electrocautery. This was extended approximately 3 cm in length in total. A small rent was noted in the mucosa at the junction of the diverticulum and the [place] esophageal mucosa. This defect was secured with a running 2-0 PDS suture up to the mouth of the diverticulum. The diverticulum was transected using an Endo-TEO stapling device, which provided much better configuration than the typical TA stapling device. An additional running closure of the area of previous mucosal defect was accomplished with a 2-0 PDS suture. It is quite likely that passage of a nasogastric tube through this [place] area would be problematic. The dilator was removed, though the wire had been allowed to remain in place. Attempts at passage of a nasogastric tube over the Electronically Signed By: DOMINIQUE RIDLEY MD 02/25/22 192 PATIENT NAME: PRANAV BARR OPERATIVE REPORT DATE OF : 39 REPORT #: [id number] PHYSICIAN: DOMINIQUE RIDLEY MD PCP: MIKE BRANTLEY MD REPORT IS CONFIDENTIAL AND NOT TO BE RELEASED WITHOUT AUTHORIZATION [address] [address] Signed wire was unsuccessful and therefore the wire was removed entirely. The ehr trainer was instructed to insufflate the hypopharynx with a mask device (though patient is still intubated of course) and the operative sites submerged in saline. There appeared to be no leakage at the mucosal margin of operation. Irrigation was undertaken and hemostasis assured with small amounts of electrocautery and the muscular layers divided. Tisseel fibrin glue was insufflated with aerosolizing device to provide added hemostasis. Through a separate stab incision, a 7 mm flat Zan drain was placed in the retropharyngeal space. Irrigation was undertaken and plans made for closure. The strap muscles were reapproximated at the midline. The platysmal layer closed with interrupted 2-0 Vicryl as well. The skin was closed with running subcuticular 3-0 Vicryl. Steri-Strips were applied and an Acticoat dressing then applied. The operation at that point had been rather prolonged, complicated, and difficult given extreme distortion of his neck, cervical spine, and so on. Mindful of his profound weight loss over the past several months and uncertainty as to the improvement of his dysphagia could be predicted going forward, a gastrostomy tube was deemed advisable. The abdomen was then prepared with a Betadine solution and draped sterilely. A small epigastric incision was made. The abdomen was entered without problem. Had very minimal abdominal wall fat. The stomach, which was somewhat distended, no doubt related to upper endoscopy was easily identified. A Alondra gastrostomy technique was deemed appropriate. A 3-0 silk sutures used in a pursestring configuration with seromuscular bites over the midportion of the stomach. A small incision was made to the left of the midline incision allowing for delivery of a 24-Mauritanian PASCUAL gastrostomy tube. The balloon was tested and the serosa incised with a with electrocautery using a hemostat ultimately entering the stomach itself. This allowed for good decompression. The stomach, which was indeed empty otherwise. The gastrostomy tube was manipulated into the stomach. The balloon insufflated partially and the pursestring secured. The serosa of the stomach was secured to the anterior abdominal wall with interrupted 3-0 silk sutures. The balloon was insufflated a bit more and withdrawn snugly, but not excessively tightly to the abdominal wall. The flange was secured to the skin with a nylon suture and a heavy nylon used to secure the flange to the feeding tube as well. The tube was flushed, showing no sign of leakage or other complication. Attention was turned towards closure of the midline incision. This was approximated with running 0-PDS suture. The skin was closed running subcuticular 3-0 Vicryl. Steri-Strips were applied as was a gauze dressing. The operation was prolonged, complicated, and difficult as previously noted. Sponge, needle, and counts were reported as correct x3. Electronically Signed By: DOMINIQUE RIDLEY MD 02/25/221923 PATIENT NAME: PRANAV BARR OPERATIVE REPORT DATE OF : 39 REPORT #: [id number] PHYSICIAN: DOMINIQUE RIDLEY MD PCP: MIKE BRANTLEY MD REPORT IS CONFIDENTIAL AND NOT TO BE RELEASED WITHOUT AUTHORIZATION [facility] [address] [place] [id number] Signed MD RADHA [email or web address] /[id number] cc: MD Jimena Villarreal MD Copies: ROWENA MANE MD, LOHITH VEERAPPA MD ~ Electronically Signed By: DOMINIQUE RIDLEY MD 02/25/22 1924 PATIENT NAME: PRANAV BARR OPERATIVE REPORT DATE OF : 39 REPORT #: [id number] PHYSICIAN: DOMINIQUE RIDLEY MD PCP: MIKE BRANTLEY MD REPORT IS CONFIDENTIAL AND NOT TO BE RELEASED WITHOUT AUTHORIZATION
--- NOTE | 2022-02-25 19:58 | NUR ---
RECIEVED REPORT FROM DAY SHIFT, DURING REPORT PT BEGAN TO DESAT HOWEVER RECOVERED QUICKLY, PT A&OX4, IN GOOD SPIRITS, DENIES ANY WORSENING DYSPNEA, DOES STILL HAVE A LOOSE COUGH AND THICK SECREATIONS, SUCTIONS AT BEDSIDE AND TURNED ON, PT USING BY SELF, DURING FOCUSED ASSESSMENT PT CONTINUED TO DESAT TO THE LOW 80S HOWEVER WAS STILL RECOVERING, LUNGS SOUND VERY COURSE WITH AN EXP WHEEZE IN THE RIGHT UPPER LOBE, PT PLACED ON 2 LPM 02 VIA NC, SATS MAINTAINING BETWEEN 97-99%, RT NOTIFIED. FULL HEAD TO TOE ASSESSMENT COMPLETED, ORDERS AND EMAR REVIEWED, NO NEW LABS TO REVIEW. PT FALLING ASLEEP, IN POSITION OF COMFORT, SUCTION AND CALL LIGHT WITHIN REACH, BED IN LOWEST POSITION, SIDE RAILS RAISED
--- NOTE | 2022-02-25 22:19 | NUR ---
PT RESTING, APPEARS COMFORTABLE, NASAL CANNULA REMAINS ON HOWEVER PT MAINLY BREATHING THROUGH MOUTH WHEN ASLEEP, KRUEGER DRAINING YELLOW URINE, GOOD URINE OUTPUT, MAINTANCE FLUID INFUSING, IV SITE WNL, VITALS WNL, DRESSING ON NECK HAS SHADOWING HOWEVER UNCHANGED FROM PREVIOUS DAYS AND REMAINS DRY AND INTACT, MATTIE DRAIN PINNED TO GOWN OUT OF PT GRASP. CALL LIGHT AND SUCTION WITHIN REACH, BED IN LOWEST POSITION, SIDE RAILS RAISED, WILL CONTINUE HOURLY ROUNDING
--- NOTE | 2022-02-26 00:11 | NUR ---
PT RESTING, APPEARS COMFORTABLE, VITALS REMAIN WNL, NOTED THAT HEART RATE DOES DECREASE TO MID TO HIGH 50S WHILE ASLEEP, FLUIDS STILL INFUSING, IV SITE WNL, KRUEGER DRAINING LIGHT YELLOW URINE, GOOD URINE OUTPUT, LUNG SOUNDS REMAIN COURSE HOWEVER HAVE IMPROVED SINCE LAST ASSESSMENT, CALL LIGHT AND SUCITON WITHIN REACH, BED IN LOWEST POSITION, HOB RAISED, SIDE RAILS RAISED, WILL CONITNUE HOURLY ROUNDING
--- NOTE | 2022-02-26 02:02 | NUR ---
PATIENT SUCTIONED. PATIENT ABLE TO COUGH UP A LARGE AMOUNT OF SECRETIONS. ORAL CARE COMPLETED. WHILE WASHING PATIENTS FACE IT WAS NOTICED PATIENT HAS SORE IN LEFT NARE AN UPPER LIP. NC REMOVED AND PATIENT PLACED ON OXYMASK. PATIENT REPOSITIONE IN BED. HOB ELEVATED. PATIENT DENIES ANY FURTHER NEEDS. CALL LIGHT IN REACH.
--- NOTE | 2022-02-26 02:34 | NUR ---
RETURNED FROM LUNCH, BRENNEN RN UPDATED THIS RN REGARDING PT CARES AND CHANGES MADE IN OXYGEN DELIVERY METHOD, PT ASSESSED, LUNG SOUNDS ARE STILL CORSE IN THE UPPER LOBES HOWEVER LOWER LOBES ARE DIM WITHOUT CRACKLES, ENSURED PT HAS SUCTION AND CALL LIGHT WITHIN REACH
--- NOTE | 2022-02-26 04:32 | NUR ---
PT IN AND OUT OF SLEEP DURING NIGHT, ASSESSMENT COMPLETED, LUNGS CONTINUE TO BE COARSE HOWEVER PT IS COUGHING AND ABLE TO CLEAR SECREATIONS WITH SUCTION, KRUEGER IS DRAINING CLEAR LIGHT YELLOW URINE, OVER 100 ML/HR OUTPUT, MAINTAINCE FLUID INFUSING, IV SITE WNL, VITALS WNL, NOTING AN UPWARD TREND IN BLOOD PRESSURE, WILL DISCUSS WITH DAY SHIFT RN, NO OTHER CONCERNS AT THIS TIME. CALL LIGHT WITHIN REACH WELL SUCTION, HOB ELEVATED, BED IN LOWEST POSITION, SIDE RAILS RAISED, WILL CONTINUE HOURLY ROUNDING
--- NOTE | 2022-02-26 06:37 | NUR ---
PT WATCHING TV, ON ROOM AIR, STILL COUGHING UP COPIOUS SECREATIONS HOWEVER ABLE TO CLEAR AND SUCTION SELF, MANAGING WELL, I&OS COMPLETED, PT DENIES ANY NEEDS AT THIS TIME WELL DENIES PAIN, HOB ELEVATED, PT IN POSITION OF COMFORT, CALL LIGHT AND SUCTION WITHIN REACH, BED IN LOWEST POSITION, SIDE RAILS RAISED. AWAITING DAY SHIFT TO GIVE REPORT
--- NOTE | 2022-02-26 07:30 | NUR ---
REPORT RECIEVED, CARE OF PT ASSUMED AT THIS TIME. PT RESTING. IV FLUIDS INFUSING. BREATHING EVNE AND UNLABORED, CALL LIGHT WITHIN REACH. WILL CONTINUE TO MONITOR.
--- NOTE | 2022-02-26 09:15 | NUR ---
PT NOW UP IN CHAIR. TUBE FEEDING NOW INFUSING. PT GIVEN TYLENOL FOR GENERALIZED PAIN. PT'S NOW AT BEDSIDE. PT MANAGING ORAL SECRETIONS WITH ORAL SUCTION. CALL LIGHT WITHIN REACH. NO FUTHER NEEDS AT THIS TIME.
--- NOTE | 2022-02-26 09:27 | NUR ---
PATIENT MOVED TO CHAIR FROM BED WITH 1PA. VITALS AND I&OS CHARTED, KRUEGER EMPTIED. LINENS CHANGED, CALL LIGHT IN EASY REACH
--- NOTE | 2022-02-26 11:49 | NUR ---
ASSESSMENT COMPLETED. PT RESTING IN CHAIR. ABLE TO REPOSITION SELF WITHOUT ASSISTANCE. ALLEVYN DRESSING ON BACK CHANGED. LUNGS CLEAR IN THE UPPERS AND DIMINISHED IN BILATERAL BASES, WITH SOME COARSENESS NOTED. BOWEL TONES REMAIN HYPOACTIVE. PT DENIES PAIN OR DISCOMFORT AT THIS TIME. CALL LIGHT WITHIN REACH. WILL CONTINUE TO MONITOR.
--- NOTE | 2022-02-26 12:13 | HP ---
[facility] [address], [place] [address] Signed ADMISSION DATE: 02/19/2022 REASON FOR ADMISSION: Dehydration and progressive severe dysphagia. HISTORY OF PRESENT ILLNESS: This 87-year-old white man has presented to the emergency room at [facility] twice now . Last week, he was evaluated by Dr. Collier with complaints of inability to the swallow including liquids. He has had a 50-pound weight loss over the past several months. 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 Somehow, he does not have a primary care physician. He travels from [place] five days a week for the radiation therapy. He had a metastatic axillary lymph node of the basal cell carcinoma excised in [place], [place]. He was seen in the emergency room on approximately February 16 having complained of inability to swallow for five days. He refused admission. He returns today with no progress in his swallowing issue. Notably, I was consulted over the phone previously, having not seen the patient and recommended a chest x-ray and a CT scan of the chest at that time; this was performed, which showed no evidence of neoplasm, metastatic disease or other finding. The patient was unable to swallow over the weekend, spitting out saliva and really not taking any food or fluids. He usually takes lisinopril for hypertension, but he has not been able to do that either. He now relents, allowing for admission to the hospital for further management. PAST MEDICAL HISTORY: Noted for hypertension. He has no known drug allergies. He has had skin cancer as previously noted in the right posterior thorax area for which resectional therapy was not done, but rather radiation therapy alone. He is additionally on an new agent for metastatic basal cell carcinoma under the direction of Dr Myers. PHYSICAL EXAMINATION: GENERAL: A very thin and cachectic white man, who looks to be debilitated overall. Pulse oximetry 98% on room air. VITAL SIGNS: Pulse today has been documented between 50 and 82. His blood pressure 177/87, previously 157/101. HEENT: His mucous membranes are slightly moist. Has excessive secretions. Has no Electronically Signed By: DOMINIQUE RIDLEY MD 02/26/22 1213 PATIENT NAME: PRANAV BARR HISTORY AND PHYSICAL DATE OF : 39 REPORT #: [id number] PHYSICIAN: DOMINIQUE RIDLEY MD PCP: MIKE BRANTLEY MD REPORT IS CONFIDENTIAL AND NOT TO BE RELEASED WITHOUT AUTHORIZATION [facility] [address], [place] [address] Signed hoarsenss. CHEST: Shows no evidence of tachypnea. On his right posterior thorax, there is a bandage under which oblong 6 x 2 cm area of excoriation representing the skin cancer is noted. Shows normal respiratory excursion without tachypnea. There is no regional adenopathy. EXTREMITIES: No tremulousness . No edema . ABDOMEN: Not particularly distended. Nondistended. There is no ascites. NECK: Shows no thyromegaly or cervical adenopathy that I can tell at this time. LABORATORY DATA: Lab studies in the emergency room today show a sodium of 153, chloride 111, CO2 32, creatinine 1.41, calcium 10.4, bilirubin 3.2, AST 106, ALT 70, globulin 3.8, alkaline phosphatase 84. White count was 5.3, hematocrit 42.8, platelets 232,000. COVID serology is negative. His CT scan images and reports were reviewed in detail. There is no evidence of neoplasm of the parenchyma of the lung. I see no cervical or mediastinal adenopathy. The distal esophagus showed no sign of mass or neoplasm or angulation deformity. The liver appears normal as does the spleen. Right and left kidneys appear normal. Noted in his catalog of studies was a PET scan performed under the direction of Dr. Soria on September 01, 2021, which shows intense uptake in the surface of the right posterior thorax as well as axillary adenopathy consistent with metastatic lymphadenopathy and uptake within the right anterior 7th rib. ASSESSMENT: It is uncertain the source of his esophageal dysphagia, there is no bulky tumor noted on the CT scan. 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 Additional evaluation of his axilla will be undertaken. He has been admitted due to his dehydration and dysphagia anticipating fluid resuscitation and ultimately upper endoscopy. He may have a benign (or malignant) stricture that accounts for his dysphagia and so on. The patient has been resistant to any form of hospitalization to evaluate these things more fully. He is said not to have a primary care physician living relatively far away from his radiation therapy treatments that are located here in [place]. I discussed all this with him. For now, we will likely plan for upper endoscopy and if necessary or possible consideration of dilation as appropriate. The risks of bleeding, infection, and perforation were reviewed with him he understands. As regards his primary tumor of his posterior thorax, radiation therapy can keep such lesions at bay. The right axillary adenopathy if still persistent on clinical examination is problematic and the possibility of a squamous cell carcinoma of the GE junction is quite unlikely. Electronically Signed By: DOMINIQUE RIDLEY MD 02/26/22 1213 PATIENT NAME: PRANAV BARR KEIRA HISTORY AND PHYSICAL DATE OF : 39 REPORT #: [id number] PHYSICIAN: DOMINIQUE RIDLEY MD PCP: MIKE BRANTLEY MD REPORT IS CONFIDENTIAL AND NOT TO BE RELEASED WITHOUT AUTHORIZATION [address] [place] [address] Signed MD RADHA Marquez/ANMOL /[id number] Copies: ~ Electronically Signed By: DOMINIQUE RIDLEY MD 02/26/22 1213 PATIENT NAME: PRANAV BARR HISTORY AND PHYSICAL DATE OF : 39 REPORT #: [id number] PHYSICIAN: DOMINIQUE RIDLEY MD PCP: MIKE BRANTLEY MD REPORT IS CONFIDENTIAL AND NOT TO BE RELEASED WITHOUT AUTHORIZATION
--- NOTE | 2022-02-26 13:40 | HP ---
[facility] [address], [place] [address] Signed ADMISSION DATE: 02/19/2022 REASON FOR ADMISSION: Dehydration and esophageal obstruction (progressive). HISTORY OF PRESENT ILLNESS: This 87-year-old white man is an impressively poor historian. He has presented to the emergency room last Saturday and again today where he was evaluated by Dr. Jarvis aMne with complaints of inability to swallow over the past several days. He has a complex past history of a right posterior thorax squamous cell carcinoma, which was too big for excision by surgeons in [facility]. A presumably metastatic right axillary lymph node was excised, however, and he was referred for radiation therapy. His radiation therapy has been five days a week under the direction of Dr. Soria in [place]. Somewhere along the way he saw Dr. Myers, who apparently facilitated this approach to the tumor rather than primary excision. Notably, he had a PET scan on September 01, 2021, which confirmed the neoplastic process of the right posterior thorax as well as a metastatic lymph node to the right axilla. This has been variably described as a squamous cell carcinoma and additionally as an advanced basal cell carcinoma. The patient is convinced that he developed a cancer in relation to a tick bite. He presented to the emergency room was evaluated by Dr. Mane last Saturday and was advised to be admitted to the hospital for fluid administration and consideration for upper endoscopy and better assessment of his dysphagia problem. The patient is unable to swallow secretions even. He does not think that he has any food impaction in the area. The patient had been taking a "pill" for his cancer problem, which he believes contributed to his current dysphagia problem. The medicine has been variably recommended to be . He is only in the past several days discontinued the medicine. It is suggested to me that this may have been Fosamax or other similar medication, which is well-known to have risk for development of dysphagia and strictures. I am uncertain of the medicine currently. Review of his medicine list at the time of admission showed he has only been on lisinopril. He does have hypertension and has not been able to take medication several days. 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 He is . His is not here right now. She is "doing chores" at their home. Electronically Signed By: DOMINIQUE RIDLEY MD 02/26/22 1340 PATIENT NAME: PRANAV BARR HISTORY AND PHYSICAL DATE OF : 39 REPORT #: [id number] PHYSICIAN: DOMINIQUE RIDLEY MD PCP: MIKE BRANTLEY MD REPORT IS CONFIDENTIAL AND NOT TO BE RELEASED WITHOUT AUTHORIZATION [facility] [address], [place] [address] Signed The patient is driven to [place] on a daily basis for his radiation therapy appointments by a family friend. REVIEW OF SYSTEMS: He has had weight loss problem at least 50 pounds over the past several months. He has no complaints of abdominal pain or chest pain necessarily. He does have to spit up his secretions. He has undergone fluid resuscitation through the course of the day today and does feel better hydrated, but is still not back to normal yet. PHYSICAL EXAMINATION: GENERAL: Pleasant white man, who is alert and oriented and not delirious at this time. VITAL SIGNS: Temperature at presentation was 98.0, pulse 82, and blood pressure 177/87. NECK: Trachea is midline. He has no hoarseness. CHEST: Shows normal respiratory excursion without tachypnea. Examination the right axilla shows no sign of adenopathy at this time. There is no cervical adenopathy. ABDOMEN: With poor muscular tone, but no evidence of ascites, tenderness, or mass. EXTREMITIES: Show minimal clubbing. LABORATORY STUDIES: Today shows a white count of 5.3, hematocrit 42.8, platelets 232,000. Chem profile with a sodium of 153, chloride 111, creatinine 1.41, glucose 106, calcium 10.4, bilirubin 3.2, AST 106, ALT 70, globulin 3.8, albumin 3.4. Serology negative for COVID and other pathogens. Abdomen and pelvis CT scan from February 16, 2022 (Saturday) showed no evidence of cervical adenopathy. There were prominent veins in the upper supraclavicular regions, however. The heart and pulmonary vessels are normal. There is no evidence of pleural effusion. There is no hilar adenopathy. Lungs showed ground-glass micronodules in the right upper lobe, early bronchiectasis is noted. Pleura is normal. Chest wall normal. There is no evidence of osteoblastic or osteolytic bone lesions. Biliary tree is normal. Right and left kidney essentially normal. . Mild prostatic and seminal vesicle enlargement is noted. There is some debris layering within the left distal mainstem bronchus and no evidence of neoplasm of the esophagus proper. There is diffuse hepatic steatosis and some simple cysts of the kidneys. There was a large amount of colonic and rectal stool. Moderate sigmoid diverticulosis. ASSESSMENT: The patient has progressive weight loss and significant dysphagia to the point of inability to swallow liquids well, significant hypernatremia. No doubt related to free water deficiency. Fluid resuscitation has been undertaken and upper endoscopy is planned for tomorrow. He may have a benign cause of esophageal narrowing, but a malignant cause a certainly Electronically Signed By: DOMINIQUE RIDLEY MD 02/26/22 0187 PATIENT NAME: PRANAV BARR HISTORY AND PHYSICAL DATE OF : 39 REPORT #: [id number] PHYSICIAN: DOMINIQUE RIDLEY MD PCP: MIKE BRANTLEY MD REPORT IS CONFIDENTIAL AND NOT TO BE RELEASED WITHOUT AUTHORIZATION [facility] [address], [place] [address] Signed possibility as well. As regard to the right posterior thorax skin cancer lesion, I looked at it and the ulcerated area is sizable, but relatively flat and probably responding well to radiation therapy, which is a viable alternative. Resectional therapy would have been my approach with rotational flap. However, he has been undergoing radiation therapy long enough that any change to that plan would probably be improved at this time. He did have metastatic disease to the right axilla and lymph node has been excised by surgeons in [facility]. The risks of bleeding, infection, and perforation related upper endoscopy has been reviewed with him, he understands. We will plan to do this tomorrow after additional fluid resuscitation. We will check his lab, in particular electrolytes tomorrow morning. MD RADHA Marquez/ANMOL /[id number] cc: Jarvis Mane MD Copies: JARVIS MANE MD ~ Electronically Signed By: DOMINIQUE RIDLEY MD 02/26/22 1340 PATIENT NAME: PRANAV BARR KEIRA HISTORY AND PHYSICAL DATE OF : 39 REPORT #: [id number] PHYSICIAN: DOMINIQUE RIDLEY MD PCP: MIKE BRANTLEY MD REPORT IS CONFIDENTIAL AND NOT TO BE RELEASED WITHOUT AUTHORIZATION
--- NOTE | 2022-02-26 14:37 | OR ---
[facility] [address], [place] [address] Signed DATE OF OPERATION: 02/21/2022 SURGEON: Dominique Ridley MD PREOPERATIVE DIAGNOSES: 1. Profound dysphagia, severe dehydration, and hypernatremia. 2. Normal-appearing CT scan. No evidence of esophageal neoplasm. POSTOPERATIVE DIAGNOSES: 1. 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 PROCEDURE: 1. Esophagogastroduodenoscopy with biopsy. 2. Balloon dilation of proximal esophageal stricture to 60-Costa Rican (20 mm) at 6 ATMs. ANESTHESIA: Local with monitored anesthesia care. Mando Kong CRNA. INDICATIONS: This 87-year-old white man presented to the emergency room last Saturday with profound inability to tolerate essentially anything by mouth and protracted spitting up of fluid. Did not have the esophageal foreign body obstruction could be discerned. He was advised to be admitted to the hospital for further management. He declined. The patient is coming to [place] on a daily basis for radiation therapy related to a right posterior thoracic probable squamous cell carcinoma. A right axillary metastatic lymph node was excised in [place], [place] by surgeons there. He presented once again on Saturday to the emergency room with no improvement of his persistent dysphagia and complete inability to tolerate oral intake of any sort. He did at that point agree to admission and further management. He was found to have significant hypernatremia with a sodium of 156 and chloride elevated to 114. A CT scan was performed on his initial evaluation in emergency room on Saturday of this past week, which showed no sign of esophageal neoplasm though it had been suspected of course. He has had improvement of his electrolytes, rehydration, and so forth and is now to undergo upper endoscopy and possible dilation. The risks of bleeding, infection, perforation, and so forth were reviewed with him. He understands and wished to proceed. Electronically Signed By: DOMINIQUE RIDLEY MD 02/26/22 1437 PATIENT NAME: PRANAV BARR OPERATIVE REPORT DATE OF : 39 REPORT #: [id number] PHYSICIAN: DOMINIQUE RIDLEY MD PCP: MIKE BRANTLEY MD REPORT IS CONFIDENTIAL AND NOT TO BE RELEASED WITHOUT AUTHORIZATION [facility] [address], [place] [address] Signed FINDINGS: It ultimately appeared that he has a significant size Zenker's diverticulum as well as proximal esophageal stricture at the origin of the diverticulum in the huslia esophagus. Mucoid material was noted in the diverticulum, which was cleared and then ultimately with the small upper endoscope the huslia esophagus could be intubated allowing for complete evaluation of the esophagus, stomach and duodenum. The proximal esophageal stricture associated in the region of the Meckel's diverticulum was biopsied, though it did not show signs of malignancy. Ultimately, balloon dilation was undertaken to 60-Costa Rican (20 mm) with an atmospheric pressure of 6 atmospheres. There was no evidence of perforation. There was disruption of the mucosa as is typical of such interventions. He tolerated procedure well. DESCRIPTION OF PROCEDURE: The patient was brought to the surgical endoscopy suite and placed in lateral decubitus position given intravenous sedation with propofol infusional technique. The bite block was placed. The lateral position was maintained left side down. An Olympus video upper endoscope was passed in the hypopharynx. The vocal cords were visible, but there appeared to be some mucoid debris in this area. The scope was passed into the esophagus, and at about 18 cm was noted to be a considerable amount of gelatinous mucoid material. This was gently suctioned and irrigated expecting to identify the huslia esophagus. Once cleared, however, there was no outlet to this area. It is considered a high probability. This represented a wide-mouth and relatively large Zenker's diverticulum. With various careful manipulations proximal withdrawal of the scope allowed for visualization of a slit-like opening which indeed was likely the huslia esophagus. Attempts at passage through this area with the regular Olympus upper endoscope was unsuccessful. The scope was then removed and a smaller diameter upper Olympus endoscope was then used and passed to the area which allowed for passage of the scope into the huslia esophagus. Esophagus was examined fully. There was no sign of distal esophageal stricture. The stomach was entered without problem showing bilious gelatinous material. Normal rugal folds. The pylorus was relatively small, but easily passed with the scope. The duodenum was examined, had mild chronic inflammation. Biopsies were obtained there and the scope was withdrawn and retroflexed view undertaken showing a somewhat patulous GE junction, but certainly no stricture or neoplasm. The scope was carefully withdrawn up to the more proximal area of entry into the esophagus where circumferential stricture like appearance was noted. This was biopsied. Consideration was made for dilation of this area. I am mindful that he may well require a Zenker's diverticulectomy with myotomy, however. The scope was manipulated into the huslia esophagus once again and a 60-Costa Rican (20 mm) balloon dilator passed across the strictured area. Sequential insufflation of the fluid within the dilator was undertaken first at 3 atmospheres, then at 4.5 atmospheres, and ultimately 6 atmospheres allowing for full dilation to 20 mm. The balloon was deflated, gently withdrawn and removed. Electronically Signed By: DOMINIQUE RIDLEY MD 02/26/22 7299 PATIENT NAME: PRANAV BARR OPERATIVE REPORT DATE OF : 39 REPORT #: [id number] PHYSICIAN: DOMINIQUE RIDLEY MD PCP: MIKE BRANTLEY MD REPORT IS CONFIDENTIAL AND NOT TO BE RELEASED WITHOUT AUTHORIZATION [facility] [address] [place] [id number] Signed Care was taken to explant the balloon device from the endoscope without puncturing the balloon for possible future use with the patient. The scope was reintroduced and far more easy passage into the huslia esophagus was undertaken. There was no evidence of perforation, though mucosal disruption as usual was identified. Photographs were taken throughout. The scope was then removed. The patient was taken to the recovery room in good condition. CONCLUDING DIAGNOSIS: Cervical dysphagia related to proximal esophageal stricture and notable probable Zenker's diverticulum. PLAN: We will order an upper GI to better evaluate the proximal esophagus, the size of the diverticulum and assess his ability to pass liquids through this area and now that it has been dilated. He may ultimately require myotomy and Zenker's diverticulectomy remains to be determined. MD RADHA Marquez/ANMOL /[id number] cc: April Ceballos MD, PH.D. Copies: APRIL CEBALLOS ~ Electronically Signed By: DOMINIQUE RIDLEY MD 02/26/22 1437 PATIENT NAME: PRANAV BARR OPERATIVE REPORT DATE OF : 39 REPORT #: [id number] PHYSICIAN: DOMINIQUE RIDLEY MD PCP: MIKE BRANTLEY MD REPORT IS CONFIDENTIAL AND NOT TO BE RELEASED WITHOUT AUTHORIZATION
--- NOTE | 2022-02-26 15:30 | NUR ---
ASSESSMENT COMPLETED. ASSISTED PT WITH AMBULATING IN CAM WAY WITH 4WW. PT STEADY ON FEET. NO SHORTNESS OF BREATH OR DISCOMFORT WITH AMBULATION. TUBE FEED AND IV FLUIDS CONTINUE TO INFUSE. PT NOW BACK IN CHAIR. CALL LIGHT WITHIN REACH. WILL CONTINUE TO MONITOR.
--- NOTE | 2022-02-26 17:29 | NUR ---
PT AMBULATED TO BATHROOM WITH FWW TO VOID. ATTEMPTED TO HAVE BM BUT UNSUCCESSFUL. STATES HE DID PASS GAS. GIVEN PRN TYLENOL FOR GENERALIZED PAIN. BAKC IN CHAIR. CALL LIGHT WITHIN REACH. WILL CONTINUE TO MONITOR.
--- NOTE | 2022-02-26 20:00 | NUR ---
ARRIVED TO SHIFT, RECIEVED REPORT FROM DAY SHIFT, FOCUSED ASSESSMENT COMPLETED, EMAR AND ORDERS REVIEWED, FULL HEAD TO TOE ASSESSMENT COMPLETED, MEDS GIVEN PER MAR, VITALS TAKEN, PT SITTING IN CHAIR, FEEDINGS INFUSING THROUGH G TUBE AT 25 ML/HR, PT DENIES ABD PAIN OR NAUSEA, INCREASED TO 35 ML/HR, GOAL IS 50 ML/HR. MAINTAINCE FLUID INFUSING, KRUEGER CATHETER HAS BEEN DISCONINTUED, ASKED PT IF HE NEEDED TO VOID, PT DENIES NEEDING TO VOID AT THIS TIME, ASKED IF HE WOULD LIKE TO MOVE BACK TO BED, STATES HE COMFORTABLE IN THE CHAIR AND WOULD MAYBE LIKE TO SLEEP IN IT, WILL ADRESS WITH PT LATER TONIGHT. CALL LIGHT AND SUCITON WITHIN REACH, CHAIR IS LOCKED, NO FURTHER NEEDS AT THIS TIME
--- NOTE | 2022-02-26 20:35 | NUR ---
DR RIDLEY CALLED, ASKING FOR AN UPDATE ON PT, UPDATE GIVEN, INFORMED DR RIDLEY OF CURRENT FEEDING RATE AND PLAN FOR THE EVENING, PER DR RIDLEY ITS OKAY TO SLOWLY ADVANCE PT HOWEVER HE BELIEVES THE PT SHOULD BE ABLE TO HANDLE FEEDING AT 50ML/HR WITHOUT ISSUE. NO FURTHER QUESTIONS
--- NOTE | 2022-02-26 22:38 | NUR ---
ROUNDING ON PT, PT WAS ALSEEP HOWEVER AWOKE WHEN I ENTERED THE ROOM, ASSISTED PT FROM CHAIR TO BED TO SLEEP. PT USED WALKER WITH A SBA FROM RN, STEADY GAIT, PLACED IN POSITION OF COMFORT. PT DENIES PAIN, ABD PAIN, AND NAUSEA, APPEARS TO BE TOLERATING FEEDS WELL. SUCTION AND CALL LIGHT PLACED WITHIN REACH, SIDE RAILS RAISED, BED IN LOWEST POSITION, HOB ELEVATED TO 30 DEGREES, WILL CONTINUE HOURLY ROUNDS
--- NOTE | 2022-02-27 00:09 | NUR ---
PT ASLEEP, APPEARS COMFORTABLE, TUBE FEEDING INFUSING AT 40 ML/HR, MAINTAINCE FLUID INFUSING, CALL LIGHT AND SUCITON WITHIN REACH, HOB RAISED TO 30 DEGREES, BED IN LOWEST POSITION, SIDE RAILS RAISED
--- NOTE | 2022-02-27 01:06 | NUR ---
PT AWAKE, STATED HE WANTED TO TRY TO VOID WHILE HES AWAKE HOWEVER UNABLE, WILL ATTEMPT AGAIN LATER, REPOSITIONED, DENIES ABD PAIN OR NAUSEA AT THIS TIME, PRODUCTIVE COUGH WITH MODERATE AMOUNT OF SECREATIONS, USING SUCTION WELL. SUCTION AND CALL LIGHT WITHIN REACH, HOB RAISED TO 30 DEGREES, BED IN LOWEST POSITION, SIDE RAILS RAISED, WILL CONTINUE HOURLY ROUNDING
--- NOTE | 2022-02-27 02:51 | NUR ---
PT CALLED, ASSISTED PT TO BATHROOM TO VOID, URINATED AND PASSING GAS, DENIES ABD PAIN OR NAUSEA BUT DOES STATE HE HAS BEEN PASSING MORE GAS THAN HE USUALLY DOES, ASSISTED BACK TO BED, DURING AMBULATION PT USED WALKER WITH SUPERVISION, STEADY GAIT. PT BACK IN BED, IN POSITION OF COMFORT, TUBE FEEDING INCREASED TO 45 ML/HR, MAINTAINCE FLUID INFUSING, IV SITE WNL, SUCTION AND CALL LIGHT WITHIN REACH, HOB ELEVATED TO 45 DEGREES, BED IN LOWEST POSITION, SIDE RAILS RAISED, WILL CONTINUE HOURLY ROUNDING
--- NOTE | 2022-02-27 04:09 | NUR ---
PT ASLEEP, APPEARS COMFORTABLE, TUBE FEEDING INFUSING, MAINTANCE FLUID INFUSING, HOB REMAINS ELEVATED, CALL LIGHT AND SUCTION WITHIN REACH, BED IN LOWEST POSITION, SIDE RAILS RAISED, CONTINUING TO ROUND HOURLY
--- NOTE | 2022-02-27 06:37 | NUR ---
ASSISTED PT TO BATHROOM, PT AMBULATED WITH WALKER, SUPERVISION FROM RN, STEADY GAIT HOWEVER DID APPEAR TO HAVE A LIMP WITH HIS RIGHT LEG. PT VOIDED AND PASSING GAS, DENIES ANY ABD PAIN OR NAUSEA. PT ASSISTED BACK TO BED, TUBE FEEDINGS AT GOAL RATE OF 50 ML/HR. I&OS COMPLETED, ROOM CLEANED UP/ORGANIZED, SUCTION AND CALL LIGHT WITHIN REACH, HOB ELEVATED, BED IN LOWEST POSITION, SIDE RAILS RAISED. AWAITING DAY SHIFT TO GIVE HAND OFF REPORT
--- NOTE | 2022-02-27 07:40 | NUR ---
PATIENT RESTING IN BED, WOKE TO VOICE. IV HAD INFILTRATED AND LEAKED ALL OVER PATIENT. BEDBATH GIVEN AND VITALS CHARTED. CALL LIGHT AND YAUNKER IN EASY REACH.
--- NOTE | 2022-02-27 08:32 | NUR ---
PT SITTING UP IN BED THIS MORNING, ALERT, ORIENTED, AND TALKATIVE. ON INITIAL ASSESSMENT, IT WAS NOTED THAT THE PT'S LFA IV HAD INFILTRATED, ARM SWOLLEN, PT DENIES PAIN OR PRESSURE, NO REDNESS NOTED. IV DC'D, ARM ELEVATED. SOME LEAKAGE NOTED COMING FROM G-TUBE SITE, MD AWARE, WILL CONTINUE TO MONITOR FOR MORE LEAKAGE. GOWN CHANGED, BED BATH COMPLETED BY STEVEN PATEL. DRESSING ON BACK INTACT, NO DRAINAGE OR SHADOWING NOTED. MATTIE DRAIN IN PLACE, SHADOWING NOTED, AWARE, OK'D TO KEEP IN PLACE. SCANT SEROUS DRAINAGE NOTED. NO OTHER WOUNDS NOTED. PT ABLE TO SUCTION SECRETIONS NEEDED. WILL CONTINUE TO CLOSELY MONITOR.
--- NOTE | 2022-02-27 08:59 | NUR ---
CALLED AND SPOKE WITH DR RIDLEY TO CLARIFY THAT THE UPPER GI W/O KUB XRAY WAS TO BE COMPLETED AND NOT ON 03/29/22 ORDERED. ORDER CHANGED IN [facility] FOR TODAY. ALSO REQUESTED CLARIFICATION RE NURSE NOTIFY NOTE REGARDING "GASTROGRAFFIN AND SUBSEQUENT BARIUM SWALLOW" STUDY THAT NEEDED TO BE ORDERED AND SCHEDULED TODAY. CONFIRMED THESE ORDERS NEEDED TO BE PLACED. CALLED IMAGING, SPOKE WITH ANTONY, WHO WILL CONSULT DR ORTIZ AND CALL BACK RE TIMING AND USE OF GASTROGRAFFIN.
--- NOTE | 2022-02-27 09:45 | NUR ---
PT UP TO BATHROOM WITH WALKER, ONE PERSON STANDBY ASSIST. VOIDED 400ML CLEAR, YELLOW URINE. PT THEN WALKED TO CHAIR AND IS SITTING IN POSITION OF COMFORT. FAMILY IN ROOM VISITING WITH PT. SUCTION WITH PT. CALL LIGHT WITHIN REACH.
--- NOTE | 2022-02-27 10:57 | NUR ---
PHYSICAL THERAPIST PEDRO IN ROOM WORKING WITH PTIla
--- NOTE | 2022-02-27 11:08 | NUR ---
PHYSICAL THERAPY COMPLETE, PT TOLERAATED VERY WELL. PT NOW SITTING UP IN CHAIR, FLUIDS/TPN CONTINUE TO INFUSE. NO SIGNS OF LEAKAGE FROM EITHER SITE. PT'S AND FRIEND REMAIN IN ROOM. PT DENIES PAIN, OR NEED TO TOILET. PT CONVERSES WITH EASE, NO SIGN OF DISTRESS NOTED, RESPIRATIONS UNLABORED. SCANT DRAINAGE NOTED IN MATTIE DRAIN. WILL CONTINUE TO MONITOR.
--- NOTE | 2022-02-27 13:42 | NUR ---
PT SITTING UP IN CHAIR. OFFERED TO MOVE BACK TO BED, PT DECLINED, REPORTING HE IS COMFORTABLE. FAMILY IN ROOM. PT AWARE OF 2:30 IMAGING PLAN. DENIES NEED FOR TOILETING OR ANYTHING ELSE AT THIS TIME. TUBE FEEDING AND FLUIDS CONTINUE TO INFUSE. CALL LIGHT AND SUCTION WITHIN REACH.
--- NOTE | 2022-02-27 15:10 | NUR ---
DOWN TO IMAGING WITH PT FOR BARIUM STUDY. SUCTION SET UP PRIOR TO AND TURNED ON FOR STUDY. PT ABLE TO AMBULATE WITHOUT ISSUE FOR STUDY AND THEN ABLE TO GET BACK INTO WC WITHOUT INCIDENT. PT DID NOT CHOKE OR COUGH DURING STUDY. PT MOVED BACK TO CCU AND INTO RM 126, FOR ANTICIPATED FLOOR REPAIR IN RM 128. GOT PT SETTLED IN, SUCTION USED IMMEDIATELY BY PT FOR COMFORT. FLUIDS/TUBE FEEDING RESTARTED. CALL LIGHT WITHIN REACH. PT HAS NO OTHER REQUESTS AT THIS TIME. WILL CONTINUE TO MONITOR. PT REMAINS NPO.
--- NOTE | 2022-02-27 16:43 | NUR ---
IN ROOM TO ASSESS PT, WHO IS SLEEPING. PT NOTED TO HAVE BRIEF APNEIC MOMENT WITH 40-50'S HR. AVERAGE HR OVER THE PAST SEVERAL DAYS HAS BEEN 60'S-70'S. WILL MONITOR TRENDS AND THEN NOTIFY MD IF NOT ISOLATED SITUATION.
--- NOTE | 2022-02-27 17:40 | NUR ---
CONTINUING TO MONITOR PT FOR INTERMITTENT BRADYCARDIA, NONE NOTED. PT AMBULATORY TO BATHROOM, STANDBY ASSIST WITH WALKER. PT HAD ONE UNMEASURED VOID AND PASSED LARGE AMOUNT OF GAS. WILL CONTINUE TO MONITOR FOR BOWEL MOVEMENT. PT NOW SITTING UP IN BED, USING WALL SUCTION. CALL LIGHT AT BEDSIDE. NO OTHER REQUESTS AT THIS TIME.
--- NOTE | 2022-02-27 21:59 | NUR ---
PT ASLEEP, APPEARS COMFORTABLE, FLUIDS AND TUBE FEEDING CONTINUE TO INFUSE, HOB REMAINS ELEVATED, SUCTION AND CALL LIGHT WITHIN REACH, SIDE RAILS RAISED, BED IN LOWEST POSITION
--- NOTE | 2022-02-27 22:45 | NUR ---
PT CALLED, NEEDING TO VOID, ASSISTED TO BATHROOM WITH WALKER AND SUPERVISION, VOIDED URINE AND PASSING GAS, ASSISTED BACK TO BED, PLACED IN POSITION OF COMFORT, TUBE FEEDS AND FLUIDS INFUSING, TOLERATING WELL, SUCTION AND CALL LIGHT WITHIN REACH, HOB ELEVATED, BED IN LOWEST POSITION, SIDE RAILS RAISED
--- NOTE | 2022-02-28 00:26 | NUR ---
PT REMAINS ASLEEP, NO NEW UPDATES, TUBE FEEDS AND FLUIDS INFUSING, HOB ELEVATED, CALL LIGHT AND SUCITON WITHIN REACH, SIDE RAILS RAISED, BED IN LOWEST POSITION, WILL CONTINUE TO ROUND HOURLY
--- NOTE | 2022-02-28 01:02 | NUR ---
PT COUGHING, LOTS OF SECREATIONS, SUCITON UTLIZED TO HELP CLEAR THEM. TUBE FEEDING LINE CHANGED OUT AT THIS TIME. TUBE FEEDS RESTARTED AT GOAL RATE OF 50 ML/HR, IV FLUIDS CONTINUE TO INFUSE, PT REPOSITIONED IN BED, HOB REMAINS ELEVATED, SUCTION AND CALL LIGHT WITHIN REACH, SIDE RAILS RAISED, BED IN LOWEST POSITION
--- NOTE | 2022-02-28 02:04 | NUR ---
PT CALLED, NEEDING TO VOID, ASSISTED TO BATHROOM WITH WALKER AND RN SUPERVISION, VOIDED URINE AND PASSED GAS, ASSISTED BACK TO BED, PLACED IN POSITION OF COMFORT, HOB ELEVATED TO 30 DEGREES. C/O PAIN IN HIS THROAT, PRN TYLENOL OFFERED, PT REFUSED, STATES "IT'S NOT THAT BAD, I DON'T WANT THAT DOPE". EDUCATION PROVIDED TO PT REGARDING PAIN MANAGEMENT AND THE DIFFERENCE BETWEEN TYLENOL AND AN OPIOD PAIN MEDICAITON. PT VERBALIZES UNDERSTANDING HOWEVER STILL REFUSING PRN TYLENOL, WILL CONTINUE TO ASSESS PAIN. VITAL SIGNS OBTAINED, SUCTION AND CALL LIGHT WITHIN REACH, SIDE RAILS RAISED, BED IN LOWEST POSITION
--- NOTE | 2022-02-28 05:09 | NUR ---
PT RESTING, ASLEEP, HOB REMAINS ELEVATED, CALL LIGHT AND SUCTION WITHIN REACH, BED IN LOWEST POSITION, SIDE RAILS RAISED, WILL CONTINUE HOURLY ROUNDS
--- NOTE | 2022-02-28 06:26 | NUR ---
DR STODDARD IN TO SEE PT, G TUBE DRESSING CHANGED, DISCUSSING PT PROGRESS SINCE ADMISSION AND PLAN GOING FOWARD, CONSULTS BEING PLACED. PER DR STODDARD OKAY TO DISCONTINUE FLUIDS.
--- NOTE | 2022-02-28 07:30 | NUR ---
PATIENT SHIFT REPORT RECIEVED FROM FINISHING OPERATOR RN. PATIENT RESTING IN BED. PER REPORT PATIENT IS VERY UPSET WITH MD STODDARD. PATIENT IS UPSET THAT HE STILL HAS A MATTIE HARJINDER IN. PATIENT FELT HE WASNT BEING LISTENED TOO. PATIENT TOLD HE WILL NEED TO GO TO A ALF. PER FINISHING OPERATOR RN, SHE TRIED TO EDUCATE PATIENT AND REASSURE PATIENT OF PLAN OF CARE. WILL CONTINUE TO CLOSELY MONITOR.
--- NOTE | 2022-02-28 08:00 | NUR ---
THIS RN IN TO CHECK ON PATIENT. PATIENT RESTING IN BED AND DENIES ANY NEEDS AT THIS TIME. PATIENT IS NON-INTERACTIVE WITH THIS RN. EDUCATED THIS RN WILL BE BACK WITH AM MEDICATIONS, WILL DO ASSESSMENT, AND VITALS. PATIENT AGREEABLE TO PLAN OF CARE. WILL CONTINUE TO CLOSELY MONITOR.
--- NOTE | 2022-02-28 09:37 | NUR ---
BOLUS TUBE FEEDING RECS: 1 CARTON (240 ML) EVERY 3 HOURS (EXAMPLE SCHEDULE: 0600, 0900, 1200, 1500, 1800). TO START, USE A SYRINGE TO BOLUS 120 ML AND FLUSH WITH 50 ML, THEN BOLUS THE OTHER 120 ML AND FLUSH WITH 50 MLS WATER. TOTAL OF 5 JEVITY 1.5 CARTONS PER DAY. EVENTUALLY HE WILL TOLERATE 240 ML AT ONCE AND THEN 100 ML WATER FLUSH 5 TIMES A DAY. THIS WILL PROVIDE 1800 CALORIES, 76.5 GM PROTEIN AND 1412 ML WATER PER DAY.
--- NOTE | 2022-02-28 09:45 | NUR ---
THIS RN IN TO DO AM ASSESSMENT. PATIENTS BREATH SOUNDS ARE COURSE. PATIENT HAS A PRODUCTIVE COUGH. SPO2 98% ON RA. RR-18. RESPIRATIONS EVEN AND UNLABORED. BOWEL TONES ACTIVE. PATIENT DENIES HAVING A BM, BUT STATES "I AM PASSING GAS". PATIENT DENIES WANTING TO TAKE ANYTHING TO HELP WITH HAVING A BOWEL MOVEMENT. PATIENT STATES "I'LL TAKE SOMETHING AT HOME WHEN I GET HOME". MILD PITTING EDEMA NOTED IN ANKLES AND BILATERAL HANDS HAVE GENERALIZED EDEMA. THIS RN SAT DOWN AND VISITED WITH PATIENT ABOUT HIS INTERACTION WITH MD STODDARD THIS AM. PATIENT IS STILL VERY UPSET. PATIENT STATES "THIS TUBE DOESNT NEED TO BE IN MY NECK, IT NEVER NEEDED TO BE THERE", "I STILL HAVE A MOUTH, I CAN SWALLOW AND EAT". EDUCATED PATIENT ON THE MATTIE DRAINS PURPOSE. PATIENT STATES "IM NOT STUPID AND THAT DOCTOR COMES IN HERE AND TELLS ME WHAT TO DO AND BRUSHES OFF WHAT IM SAYING". THIS RN STAYED AND VISITED JESUS PATIENT FOR APPROX AN HOUR. EDUCATED PATIENT ON PLAN OF CARE AND PLAN FOR OPTOMETRIC TECHNOLOGIST CONSULT AND CASE MANAGEMENT CONSULT. PATIENT IS AGREEABLE TO PLAN OF CARE. ASSITED PATIENT UP TO THE BATHROOM. MEDICATIONS GIVEN. PATIENT DENIES ANY OTHER NEEDS AT THIS TIME. PATIENT IS MORE RELAXED AND OKAY WITH PLAN OF CARE AT THIS TIME. WILL CONTINUE TO CLOSELY MONITOR.
--- NOTE | 2022-02-28 12:20 | NUR ---
Patient assisted up to the bathroom. Patient is a stand-by assist and toelrates well. Patient has family at the bedside. PRN tylenol given for patients headache 5/10 on the pain scale. Patient and family joking with staff. Patient is in better spirits this afternoon. will continue to closely monitor.
--- NOTE | 2022-02-28 14:05 | NUR ---
PATIENT RESTING IN BED. PATIENTS FAMILY LEFT AT THIS TIME. WILL CONTINUE TO CLOSELY MONITOR. PATIENT
--- NOTE | 2022-02-28 14:33 | NUR ---
PATIENT UP WORKING WITH PHYSICAL THERAPY.
--- NOTE | 2022-02-28 15:00 | NUR ---
PATIENT SITTING ON EDGE OF BED AT THIS TIME. PATIENT TOELRATED PHYSIACL THERAPY WELL. PATIENT DENIES NEEDING ANYTHIGN AT THIS TIME. WILL CONTINUE TO CLOSELY MONITOR.
--- NOTE | 2022-02-28 15:43 | NUR ---
THIS RN CALLED MD STODDARD TO VERIFY NUTRITION CONSULT RECOMMENDATIONS. OKAYED HER RECOMENDATIONS FOR TUBE FEEDINGS. SEE NUTRITION CONSULT NOTE FOR HER RECOMMENDATIONS. THIS RN HAS BEEN IN SITTING VISITING WITH PATIENT ABOUT HIS ADVENTURES IN LIFE AND THE ON GOING MEDICAL ISSUES HE HAS HAD. PATIENT DENIES ANY OTHER NEEDS AT THIS TIME. WILL CONTINUE TO CLOSELY MONITOR.
--- NOTE | 2022-02-28 15:49 | PATH ---
[facility] [address], [place] [address] Signed SPECIMEN(S): A ZENKER'S DIVERTICULUM SPECIMEN SOURCE: A. ZENKER'S DIVERTICULUM CLINICAL HISTORY: Progressive weight loss, significant dysphagia, hypernatremia, dehydration, inability to swallow. FINAL PATHOLOGIC DIAGNOSIS: Esophagus, Zenker's diverticulum, excision: - Segment of esophagus with chronic inflammation and reactive changes, compatible with Zenker's diverticulum. - Focal transmural disruption present, see comment. - Focal submucosal polarizable foreign material. - Negative for dysplasia or malignancy. COMMENT: A focus of transmural disruption is present within the specimen, this could be mechanical in nature secondary to the surgical procedure. Clinical correlation is required. NAL:cml:C2NR MICROSCOPIC EXAMINATION: Histologic sections of all submitted blocks are examined by light microscopy. These findings, together with the gross examination, support the pathologic diagnosis. GROSS DESCRIPTION: The specimen, labeled "MINE, A," and designated on the requisition "Zenker's diverticulum," is received in formalin and consists of a disrupted and stapled portion of soft tissue/esophagus (3.0 x 2.0 x 1.1 cm) with stapled margin and area of transmural disruption (1.0 x 1.4 cm) located 0.9 cm from the stapled margin. The area of disruption is inked blue, and the margin is inked black. The remaining adventitia is red-brown to pink-huffman and glistening. Specimen is opened to reveal a white-huffman to hemorrhagic mucosal surface. The specimen is submitted entirely in cassettes (A1-A3). AC (under the direct supervision of a pathologist) The Gross Description was prepared using a voice recognition system. The report was reviewed for accuracy; however, sound-alike word errors, addition and/or PATIENT NAME: PRANAV BARR PATHOLOGY DATE OF : 39 REPORT #: [id number] PHYSICIAN: [facility] PCP: MIKE BRANTLEY MD REPORT IS CONFIDENTIAL AND NOT TO BE RELEASED WITHOUT AUTHORIZATION [facility] [address] [address] Signed deletions may occur. If there is any question about this report, please contact Client Services. PERFORMING LABORATORY: The technical component was performed by [facility], [address] [place] [address] (CLIA# [id number]). Professional interpretation was performed by [employer] [facility], [address] [address] (CLIA# [id number]). Diagnostician: Kylee Lui MD Pathologist Electronically Signed 02/28/2022 Copies: ~ PATIENT NAME: PRANAV BARR PATHOLOGY DATE OF : 39 REPORT #: [id number] PHYSICIAN: [facility] PCP: MIKE BRANTLEY MD REPORT IS CONFIDENTIAL AND NOT TO BE RELEASED WITHOUT AUTHORIZATION
--- NOTE | 2022-02-28 17:30 | NUR ---
FIRST BOLUS DOSE OF 120MLS JEVITY GIVEN PER MECHANICAL DEVELOPMENT ENGINEER AND MD ORDERS. WILL MONITOR PATIENT FOR ADVERSE EFFECTS. THIS RN AT THE BEDSIDE AND SO FAR PATIENT IS TOLERATING WELL. FLUSHED JEVITY WITH 50MLS OF FLUID. WILL WAIT 30MINS-1HOUR TO GIVE REMAINING BOLUS IF PATIENT TOLERATES WELL. NO OTHER NEEDS AT THIS TIME. WILL CONTINUE TO CLOSELY MONITOR.
--- NOTE | 2022-02-28 18:40 | NUR ---
PATIENT RESTING IN BED. REMAINING TUBE FEED GIVEN PER ORDERS AND FLUSHED WITH 50MLS OF WATER AFTER. PATIENT TOLERATED WELL AND TOELRATED PRIOR ADMINISTRATION WITH NO ADVERSE EFFECTS. PATIENT UP TO THE BATHROOM. NO OTHER NEEDS AT THIS TIME. WILL CONTINUE TO CLOSELY MONITOR.
--- NOTE | 2022-02-28 20:07 | NUR ---
REPORT RECEIVED FROM DAY SHIFT RN. PT IS SITTING UP IN BED AND APPEARS COMFORTABLE W/O SIGNS OF DISTRESS NOTED. CALL LIGHT WITHIN REACH.
--- NOTE | 2022-02-28 21:33 | NUR ---
COMPLIANT W/ MEDICATION ADMINISTRATION AND ASSESSMENT. IV PATENT. HOB ELEVATED. PT TOLERATED 120 ML BOLUS OF JEVITY FOLLOWED BY H2O W/O NOTED ADVERSE EFFECT. VSS. AFEBRILE. PT DENIES NAUSEA. SUCTION AT HAND; PT USES APPROPRIATELY. WILL ADMINISTER REMAINING 120 ML OF JEVITY W/ 50 ML FLUSH OF H2O ORDERED IF PT CONTINUES TO TOLERATE BOLUS W/O ADVERSE EFFECT. VERBALIZES NEEDS APPROPRIATELY. CALL LIGHT WITHIN REACH. WILL CONT TO MONITOR.
--- NOTE | 2022-02-28 22:44 | NUR ---
PT RESTING IN BED W/ HIS EYES CLOSED AND APPEARS COMFORTABLE. CALL LIGHT WITHIN REACH. NO SIGNS OF DISCOMFORT OR DISTRESS NOTED. WILL CONT TO MONITOR.
--- NOTE | 2022-03-01 01:00 | NUR ---
PT CONTINUES RESTING IN BED WITH HIS EYES CLOSED AND APPEARS COMFORTABLE WITHOUT NOTED DISCOMFORT. HOB ELEVATED. AFEBRILE. NO ADVERSE EFFECT FOLLOWING TUBE FEEDING NOTED. PT VERBALIZES NEEDS APPROPRIATELY. CALL LIGHT WITHIN REACH. WILL CONT TO MONITOR.
--- NOTE | 2022-03-01 03:00 | NUR ---
PT REMAINS RESTING IN BED AND APPEARS COMFORTABLE. NO SIGNS OF DISTRESS NOTED. CALL LIGHT WITHIN REACH.
--- NOTE | 2022-03-01 04:27 | NUR ---
PT UP TO BR. SCDs REATTACHED ONCE PT RETURNED TO BED. IV PATENT AND SALINE LOCKED ORDERED. VSS. PT DENIES PAIN. NO SIGNS OF DISTRESS NOTED. CALL LIGHT WITHIN REACH. WILL CONT TO MONITOR.
--- NOTE | 2022-03-01 06:57 | NUR ---
PT TOLERATED MORNING JEVITY WITH H2O FLUSH WITHOUT NOTED ADVERSE EFFECT. AFEBRILE. DR. STODDARD AT BEDSIDE THIS MORNING TO REMOVE MATTIE DRAIN- PT TOLERATED REMOVAL OF DRAIN; SITE COVERED W/ GAUZE AND TAPE PER PROVIDER. PT CONTINUES TO USE YANKAUER FOR ORAL SUCTION APPROPRIATELY AND INDEPENDENTLY. VERBALIZES NEEDS. HOB ELEVATED. DENIES PAIN/DISCOMFORT. CALL LIGHT WITHIN REACH. WILL CONT TO MONITOR.
--- NOTE | 2022-03-01 07:30 | NUR ---
PATIENT SHIFT REPORT RECIEVED FROM APPLICATION SUPPORT ADMINISTRATOR RN. PATIENT IS CURRENTLY RESTING IN BED. PATIENT HAD A GOOD NIGHT. ARLYN IN TO REMOVE MATTIE DRAIN THIS AM AND INITIATED NEW ORDERS FOR PREPING PATIENT FOR DISCHARGE. WILL CONTINUE TO CLOSELY MONITOR.
--- NOTE | 2022-03-01 08:45 | NUR ---
THIS RN I NTO SEE PATIENT AND DO ASSESSMENT. PATIENTS BREATH SOUNDS ARE CLEAR AND COARSE AT TIMES WHEN PATIENT NEEDS TO COUGH AND CLEAR HIS SECRETIONS. PATIENTS BOWEL TONES ARE ACTIVE. PATIENT IS NON-DISTENDED AND NON-TENDER. PATIENT REPORTS PASSING GAS THROUGH THE NIGHT. PATIENT CONTINUES TO REFUSE STOOL SOFTENERS OF ANY KIND. PATIENT STATES "IWILL USE SOME WHEN I GET HOME". PATIENT G-TUBE IS PATENT WITH NO ISSUES. MATTIE DRAIN SITE IS C/D/I WITH A FOLDED GAUZE AT THE SITE. PATIENT STATES HIS FAMILY WILL BE IN SOON. MEDICATIONS GIVEN PER TUBE. TUBE FEED AND WATER FLUSHED. PATIENT DENIES ANY OTHER NEEDS AT THIS TIME. PATIENT ASSISTED WITH TUBE FEED THIS AM AND WILL TEACH PATIENTS WHEN SHE ARRIVES. PATIENT SWIFE ASSISTED SOME YESTERDAY WELL.
--- NOTE | 2022-03-01 10:00 | NUR ---
PATIENTS AND FAILY FRIEND WHO WILL BE HELPING PATIENT AT HOME ARE HERE AND EDUCATED ON TUBE FEEDING INSTRUCTIONS. PATIENTS AND PATIENT DID THE TUBE FEED BOLUS AND PATIENT TOLERATED WELL. CASE MANAGEMENT IS WORKING ON DISCHARGE INSTRUCTIONS FOR SETTING UP JEVITY AND G-TUBE SUPPLIES TO BE DELIVERED TO THEIR HOME IN [place]. PATIENT WILL COME TO DAY SURGERY AT THE HOSPITAL FOR 3 DAYS A WEEK FOR THE NEXT 2 WEEKS TO FOLLOW-UP ON EDUCATIONS AND CARES. PATIENT AND FAMILY IS AGREEABLE TO PLAN OF CARE. PATIENT DOES RADIATION IN TOWN 5 DAYS A WEEK. NO OTHER NEEDS AT THIS TIME. WILL CONTINUE ON ARRANGING PLANS FOR DISCHARGE.
--- NOTE | 2022-03-01 12:15 | NUR ---
PATIENTS FAMILY AT THE BEDSIDE. PATIENTS ADMINISTERED PATIENTS JEVITY BOLUS AND WATER FLUSH AND DID WELL. STAFF ARE CONTINUING TO WORK ON DISCHARGE PLANS ENSURING EVERYTHING WILL BE SET-UP AND READY FOR PATIENT FOR OVER THE WEEKEND. STEPH WITH CASE MANAGEMENT IS WORKING ON THESE INSTRUCTIONS.
[2022-03-01] MEDS ORDERED: LISINOPRIL10 MG PT (12:20)
--- NOTE | 2022-03-01 14:45 | NUR ---
THIS RN HAS BEEN IN WITH PATIENT, HIS , AND HIS NEIGHBOR TO CONTINUE EDUCATION. ALL ARE COMFORTABLE WITH G-TUBE AND PROVIDED EDUCATION. THIS RN REVIEWED [facility] BOLUS PLAN. TUBE CARE, CRUSHING MEDICATIONS, ADMINISTRATION OF MEDICATIONS, TUBE FEED, AND WATER. CLEANING INSTRUCTIONS. INSICION CLEANING INSTRUCTION ON PATIETNS NECK. SUPPLIES SENT WITH PATIENT TO GET PATIENT THROUGH THE WEEKEND. CASE MANAGEMENT SET UP THE [facility] DELIVERY SERVICE TO THE PATIENTS HOUSE. PATIENT HAS AN APPOINTMENT WITH HIS PRIMARY CARE, PATIENT WILL CALL MD RIDLEY'S OFFICE ON SATURDAY FOR FOLLOW-UP, PATIENT HAS A RADITATION APT AT 3:20. ALL QUESTIONS ANSWERED. PATIENT AND HIS DEMONSTRATED CORRECT USAGE ON G-TUBE. THEY DENY ANY FURTHER QUESTIONS AT THIS TIME.
--- NOTE | 2022-03-01 15:15 | NUR ---
SAL RN DID A SET OF VITAL SIGNS, REMOVED PATIENTS IV. THIS RN DID A JEVITY BOLUS FEED PRIOR TO PATIENT LEAVING. ALL EXTRA SUP[PLIES SENT WITH PATIENT. THIS RN AND STEVEN TOMPKINS TOOK PATIENT AND ALL BELONGINGS TO THE FRONT. PATIENT WILL BE BACK HERE SATURDAY FOR FOLLOW-UP OF G-TUBE CARE. NO FURTHER QUESTIONS AT THIS TIME. PATIENT LEFT WITH AND HIS FRIEND.
== END 2022-03-01 15:10 | disposition home or self-care (01) | DRG 327 ==
LOC: ED 10:11 → MS 10:13 → CCU 02-23 17:48
PROVIDERS: ADMIT Surgery; ATTEND Surgery
PROC: 0DB98ZX Excision of Duodenum, Via Natural or Artificial Opening Endoscopic, Diagnostic (ICD-10-PCS; 2022-02-21)
PROC: 0DB38ZX Excision of Lower Esophagus, Via Natural or Artificial Opening Endoscopic, Diagnostic (ICD-10-PCS; 2022-02-21)
PROC: 0K840ZZ Division of Tongue, Palate, Pharynx Muscle, Open Approach (ICD-10-PCS; 2022-02-23)
PROC: 0DB10ZZ Excision of Upper Esophagus, Open Approach (ICD-10-PCS; 2022-02-23)
PROC: 0D718ZZ Dilation of Upper Esophagus, Via Natural or Artificial Opening Endoscopic (ICD-10-PCS; 2022-02-23)
PROC: 0D9600Z Drainage of Stomach with Drainage Device, Open Approach (ICD-10-PCS; principal; 2022-02-23 13:00)
DX: K22.5 Diverticulum of esophagus, acquired (principal); E87.0 Hyperosmolality and hypernatremia; E46 Unspecified protein-calorie malnutrition; I50.22 Chronic systolic (congestive) heart failure; J70.0 Acute pulmonary manifestations due to radiation; Z68.1 Body mass index [BMI] 19.9 or less, adult; K22.2 Esophageal obstruction; Z20.822 Contact with and (suspected) exposure to COVID-19; R13.14 Dysphagia, pharyngoesophageal phase; E86.0 Dehydration; R63.4 Abnormal weight loss; K70.10 Alcoholic hepatitis without ascites; K76.0 Fatty (change of) liver, not elsewhere classified; D72.819 Decreased white blood cell count, unspecified; I11.0 Hypertensive heart disease with heart failure; Z85.828 Personal history of other malignant neoplasm of skin; Z79.899 Other long term (current) drug therapy
CPT/HCPCS: 36415; 36600; 71045; 74230; 74246; 80048; 80053; 80061; 80076; 82803; 83735; 83880; 84100; 84134; 85025; 85610; 87502; 88305; 88309; 93005; 93010; 93306; 94002; 94003; 96360; 96361; 97116; 97162; 97530; 99285-25; A9270; C1726; C9803; G0378; J0330; J0360; J0690; J1100; J1160; J1720; J1885; J2001; J2270; J2370; J2405; J2704; J2765; J3010; J3475; J3480; J7030; J7060; J7070; J7121; U0003